=== PATIENT | female | born 1935 | race Caucasian/White ===

== ENCOUNTER → 2017-10-28 | Outpatient (CLI) | payer OTHER, SELFPAY ==
[~2017-10-28] MED LIST: ACET325 PO; ALBU90OI INH; ALEN70 PO; AMOCLA875 PO; ASPI325 PO; ASPI81CH PO; ASPI81EC PO; BENZ100A PO; BUME2 PO; CALCA400CH PO; CALCAVITD PO; CALCIUM + VITA1 EACH PO; CALCIUM PO; CARV6.25 PO; CHOL10002 PO; Cleocin HCl300 MG PO; Cozaar PO; FLUT110OIA IH; FLUT44OIA IH; GLUC500 PO; HYDACE5 PO; K-TAB ER20 MEQ PO; LISI20 PO; LORA.5 PO; LORA1 PO; LORA10 PO; LOSA50 PO; LOSARTAN POTAS100 MG PO; LOSHYD100 PO; Lotrisone Cream45 GM EXT; MULVITMIND PO; Multiple Vitam1 EAC1 PO; POLY500 PO; Prednisone20 MG PO; SPACE CHAMBER1 EACH MC; Vitamin D2000 UNIT PO; XARELTO15 MG PO; Zithromax250 MG PO; [UNRECOGNIZED DRUG - OTHER] PO
== END ==
LOC: LAB SHORT 10:25
DX: A04.72 Enterocolitis due to Clostridium difficile, not specified as recurrent (principal)
CPT/HCPCS: 87493

== ENCOUNTER → 2018-01-05 | Outpatient (CLI) | payer OTHER, SELFPAY | END | disposition home or self-care (01) | LOC: LAB SHORT 17:27 → LAB 17:27 | DX: B96.89 Other specified bacterial agents as the cause of diseases classified elsewhere (principal) | CPT/HCPCS: 87493 ==

== ENCOUNTER → 2018-02-21 | Outpatient (CLI) | payer OTHER, SELFPAY | END | disposition home or self-care (01) | LOC: LAB 11:29 → LAB FUT 02-20 15:05 → EDSTATUS 02-20 15:05 | DX: A04.71 Enterocolitis due to Clostridium difficile, recurrent (principal) | CPT/HCPCS: 87493 ==

== ENCOUNTER → 2018-03-20 | Outpatient (CLI) | payer OTHER, SELFPAY ==
[2018-03-21 12:10] LABS: Stool Occult Bld Immuno 1 Negative (NEGATIVE)
[2018-03-21 12:11] LABS: Stool Occult Bld Immuno 2 Negative (NEGATIVE); Stool Occult Bld Immuno 3 Negative (NEGATIVE)
== END | disposition home or self-care (01) ==
LOC: LAB 11:56
PROVIDERS: Nurse Practitioner
DX: R19.7 Diarrhea, unspecified (principal); R10.11 Right upper quadrant pain; R14.0 Abdominal distension (gaseous)
CPT/HCPCS: G0328

== ENCOUNTER → 2018-05-26 | Outpatient (CLI) | payer OTHER, SELFPAY | LOC: LAB 13:28 → LAB SHORT 13:28 | DX: R19.7 Diarrhea, unspecified (principal) | CPT/HCPCS: 87493 ==

== ENCOUNTER → 2018-09-29 | Outpatient (CLI) | payer OTHER | END | disposition home or self-care (01) | LOC: LAB UCHC 13:43 → LAB SHORT 13:43 → EDSTATUS 01-24 08:05 → LAB FUT 01-24 08:05 | DX: N93.9 Abnormal uterine and vaginal bleeding, unspecified (principal); R31.9 Hematuria, unspecified | CPT/HCPCS: 87086 ==

== ENCOUNTER → 2019-03-11 | Outpatient (CLI) | payer OTHER ==
[2019-03-13 17:59] LABS: Adenovirus F 40/41 Not Detected (NOT DETECT); Astrovirus Not Detected (NOT DETECT); Campylobacter Sp Not Detected (NOT DETECT); Cryptosporidium Not Detected (NOT DETECT); Cyclospora Cayetanensis Not Detected (NOT DETECT); E. Coli O157 Not Detected (NOT DETECT); Entamoeba Histolytica Not Detected (NOT DETECT); Enteroaggregative E. coli-EAEC Not Detected (NOT DETECT); Enteropathogenic E. coli-EPEC Not Detected (NOT DETECT); Enterotoxigenic E. coli-ETEC Not Detected (NOT DETECT); Giardia Lamblia Not Detected (NOT DETECT); Norovirus GI/GII Not Detected (NOT DETECT); Plesiomonas Shigelloides Not Detected (NOT DETECT); Rotavirus A Not Detected (NOT DETECT); Salmonella Sp Not Detected (NOT DETECT); Sapovirus Not Detected (NOT DETECT); Shiga Toxin-prod E. coli-STEC Not Detected (NOT DETECT); Shigella/Enteroin E. coli-EIEC Not Detected (NOT DETECT); Vibrio Cholerae Not Detected (NOT DETECT); Vibrio Sp Not Detected (NOT DETECT); Yersinia Enterocolitica Not Detected (NOT DETECT)
== END | disposition home or self-care (01) ==
LOC: LAB 15:10 → LAB SHORT 15:10
PROVIDERS: Internal Medicine Gastroenterology
DX: R10.84 Generalized abdominal pain (principal); R19.7 Diarrhea, unspecified
CPT/HCPCS: 87507

== ENCOUNTER 2019-04-27 08:30 | Day surgery (SDC) | payer OTHER, SELFPAY ==
[~2019-04-27] VITALS: Ht 165.1 cm; Wt 71.2 kg
[~2019-04-27 08:30] MED LIST changes: +VITAMIN D5000 UNIT PO; -XARELTO15 MG PO; +XARELTO20 MG PO
--- NOTE | 2019-04-27 09:31 | NUR ---
04/27/19 0931 DEBORAH TOBIAS ONE BAD IV, ONE GOOD IV BY ROSSANA
== END 2019-04-27 10:22 | disposition home or self-care (01) ==
LOC: ORSCSDS 08:30
PROVIDERS: Internal Medicine Gastroenterology
PROC: 0DBE8ZX Excision of Large Intestine, Via Natural or Artificial Opening Endoscopic, Diagnostic (ICD-10-PCS; principal; 2019-04-27 09:45)
PROC: 0DBM8ZX Excision of Descending Colon, Via Natural or Artificial Opening Endoscopic, Diagnostic (ICD-10-PCS; principal; 2019-04-27 09:45)
DX: K62.5 Hemorrhage of anus and rectum (principal); D12.4 Benign neoplasm of descending colon; K58.9 Irritable bowel syndrome, unspecified; Z86.010 Personal history of colon polyps; K57.30 Diverticulosis of large intestine without perforation or abscess without bleeding; K64.8 Other hemorrhoids; Z80.0 Family history of malignant neoplasm of digestive organs; I48.91 Unspecified atrial fibrillation; Z79.899 Other long term (current) drug therapy
CPT/HCPCS: 88305; J2704; J7120

== ENCOUNTER 2019-04-29 11:09 | Observation (INO) | payer OTHER ==
[~2019-04-29] VITALS: Ht 165.1 cm; Wt 69.1 kg
[2019-04-29 12:40] LABS: BASOPHILS ABSOLUTE AUTO 0.05 K/mm3 (0.00-0.23); BASOPHILS PERCENT AUTO 1 % (0-2); EOSINOPHILS ABSOLUTE AUTO 0.15 K/mm3 (0.00-0.68); EOSINOPHILS PERCENT AUTO 3 % (0-6); IMMATURE GRAN ABSOLUTE AUTO 0.03 K/mm3 (0.00-0.10); IMMATURE GRAN PERCENT AUTO 1 % (0-1); LYMPHOCYTES ABSOLUTE AUTO 1.73 K/mm3 (0.84-5.20); LYMPHOCYTES PERCENT AUTO 31 % (21-46); MONOCYTES ABSOLUTE AUTO 0.54 K/mm3 (0.16-1.47); MONOCYTES PERCENT AUTO 10 % (4-13); Mean Corpuscular HGB 30.8 pg (26.0-34.0); Mean Corpuscular HGB Conc 32.6 g/dL (31.5-36.5); Mean Corpuscular Volume 95 fL (80-100); Mean Platelet Volume 10.5 fL (9.1-12.4); NEUTROPHILS ABSOLUTE AUTO 3.18 K/mm3 (1.96-9.15); NEUTROPHILS PERCENT AUTO 56 % (41-73); Platelet Count 145 K/mm3 (150-400); RDW Coefficient Variation 13.2 % (11.7-14.2); RDW Standard Deviation 45.4 fL (35.1-46.3); Red Blood Cell Count 4.55 M/mm3 (3.80-5.20); White Blood Cell Count 5.68 K/mm3 (4.00-11.30)
[2019-04-29 12:59] LABS: Alanine Aminotransfer (ALT/SGP 19 U/L (12-78); Albumin, Blood 3.6 g/dL (3.4-5.0); Albumin/Globulin Ratio 1.3 (0.8-1.8); Alk Phos 93 U/L (50-136); Anion Gap 3 mmol/L (6-16); Aspartate Aminotrans (AST/SGOT 16 U/L (12-37); Bilirubin, Total 1.2 mg/dL (0.1-1.0); Blood Urea Nitrogen 20 mg/dL (8-24); Bun/Creatinine Ratio 22.9 (12.0-20.0); CO2, Blood 28 mmol/L (21-32); Chloride, Blood 110 mmol/L (98-108); Creatinine, Blood 0.87 mg/dL (0.40-1.00); Globulin, Blood 2.7 g/dL (2.2-4.0); Glomerular Filtration Rate >60 (60-); Glucose, Blood 92 mg/dL (70-99); Potassium, Blood 4.4 mmol/L (3.5-5.5); Sodium, Blood 141 mmol/L (136-145); Total Protein, Blood 6.3 g/dL (6.4-8.2)
[2019-04-29] MEDS ORDERED: LOSA25 PO (13:17)
[2019-04-29] MEDS ORDERED: ASCO500 PO (13:17)
[2019-04-29] MEDS ORDERED: FLUO10 PO (13:19)
[2019-04-29] MEDS ORDERED: METAMUCIL0.4 GM PO (13:19)
--- NOTE | 2019-04-29 18:23 | NUR ---
SHIFT SUMMARY ED ADMIT THIS AFTERNOON. PATIENT DENIES PAIN, NAUSEA, AND SHORTNESS OF BREATH. PATIENT CONTINUES TO PASS LARGE AMOUNTS OF CLAY RED BLOOD AND CLOTS FROM HER RECTUM. PATIENT UP TO BATHROOM SBA. DR. KRAUS CONSULTED ON PATIENT TODAY. CALL LIGHT IN REACH, WILL CONTINUE TO MONITOR.
[2019-04-29 19:59] LABS: Hematocrit 40.9 % (33.0-51.0); Hemoglobin 12.9 g/dL (11.5-16.0)
--- NOTE | 2019-04-30 04:39 | NUR ---
SUMMARY: A/OX3, CALLS APPROPRIATELY AND SPECIFIES NEEDS. SHE CONT'S TO HAVE BM'S W/CLAY RED VISCOUS BLOOD AND CLOTS OBSERVED. SHE REPORTS A SOFT, NONTENDER ABDO W/DISTENSION OBSERVED AND BT'S PRESENT X4 QUADS. CLEAR LIQUID DIET BEING TOLERATED AND CONSULTING. NS W/2OMEQ KCL INFUSES PER EMAR. BREAK GIVEN FROM KARLY HOSE AND PT REPOSITIONS SELF IN BED. NO ACUTE CHANGES, VSS AND AFEBRILE. WCTM AND REPORT TO DAY RN. AM LABS PENDING.
[2019-04-30 05:05] LABS: Hematocrit 38.8 % (33.0-51.0); Hemoglobin 12.4 g/dL (11.5-16.0); Mean Corpuscular HGB 30.8 pg (26.0-34.0); Mean Corpuscular Volume 97 fL (80-100); Mean Platelet Volume 10.3 fL (9.1-12.4); Platelet Count 129 K/mm3 (150-400); RDW Standard Deviation 46.2 fL (35.1-46.3); Red Blood Cell Count 4.02 M/mm3 (3.80-5.20); White Blood Cell Count 5.21 K/mm3 (4.00-11.30)
[2019-04-30 05:40] LABS: Anion Gap 5 mmol/L (6-16); Blood Urea Nitrogen 15 mg/dL (8-24); Bun/Creatinine Ratio 17.5 (12.0-20.0); CO2, Blood 26 mmol/L (21-32); Calcium, Blood 8.2 mg/dL (8.5-10.1); Chloride, Blood 110 mmol/L (98-108); Creatinine, Blood 0.86 mg/dL (0.40-1.00); Glomerular Filtration Rate >60 (60-); Glucose, Blood 82 mg/dL (70-99); Potassium, Blood 4.5 mmol/L (3.5-5.5); Sodium, Blood 141 mmol/L (136-145)
[2019-04-30 15:55] LABS: Hematocrit 38.2 % (33.0-51.0); Hemoglobin 12.3 g/dL (11.5-16.0)
--- NOTE | 2019-04-30 18:31 | NUR ---
SHIFT SUMMARY PT CONTINUES TO HAVE BLOODY STOOLS WITH BLOOD CLOTS. PT TOLERATING CLEAR LIQ DIET. PT STATES SHE THINKS THE AMOUNT OF BLOOD IS DECREASING IN EACH STOOL. NO OTHER CHANGES IN ASSESSMENT AT THIS TIME. VSS. WILL CONTINUE TO MONITOR UNTIL TURNOVER IS COMPLETE.
[2019-05-01 05:24] LABS: BASOPHILS ABSOLUTE AUTO 0.05 K/mm3 (0.00-0.23); BASOPHILS PERCENT AUTO 1 % (0-2); EOSINOPHILS ABSOLUTE AUTO 0.17 K/mm3 (0.00-0.68); EOSINOPHILS PERCENT AUTO 3 % (0-6); Hematocrit 39.2 % (33.0-51.0); Hemoglobin 12.6 g/dL (11.5-16.0); IMMATURE GRAN ABSOLUTE AUTO 0.02 K/mm3 (0.00-0.10); IMMATURE GRAN PERCENT AUTO 0 % (0-1); LYMPHOCYTES ABSOLUTE AUTO 1.61 K/mm3 (0.84-5.20); LYMPHOCYTES PERCENT AUTO 29 % (21-46); MONOCYTES ABSOLUTE AUTO 0.57 K/mm3 (0.16-1.47); MONOCYTES PERCENT AUTO 10 % (4-13); Mean Corpuscular HGB 30.8 pg (26.0-34.0); Mean Corpuscular HGB Conc 32.1 g/dL (31.5-36.5); Mean Corpuscular Volume 96 fL (80-100); Mean Platelet Volume 10.5 fL (9.1-12.4); NEUTROPHILS ABSOLUTE AUTO 3.06 K/mm3 (1.96-9.15); NEUTROPHILS PERCENT AUTO 56 % (41-73); Platelet Count 131 K/mm3 (150-400); RDW Standard Deviation 45.4 fL (35.1-46.3); Red Blood Cell Count 4.09 M/mm3 (3.80-5.20); White Blood Cell Count 5.48 K/mm3 (4.00-11.30)
--- NOTE | 2019-05-01 05:33 | NUR ---
SUMMARY: A/O, INDEPENDENT AND KNOWS TO CALL FOR ASSIST PRN. SHE HAS DENIED NEEDING PAIN OR NAUSEA MEDS AND HASN'T REPORTED AND DIZZYNESS DESPITE CONT'D RECTAL BLEEDING. BLOOD LOSS HAS VARIED FROM LARGE DARK RED/PURPLE CLOTS TO LIQUID CLAY BLOOD IN VARYING AMTS. SHE HAD X1 EPISODE OF BROWN SMEAR MIXED IN W/RECTAL BLEEDING AND PT REPORTED THIS WAS 1ST OBSERVED STOOL IN DAYS. SHE IS OFTEN INCONTINENT D/T URGENCY. HER ABDO CONT'S VERY DISTENDED AND FIRM. BT'S (+) X4 QUADS. SHE REFUSED METAMUCIL THIS SHIFT BUT AGREED TO COMMENCE AGAIN TODAY. CL DIET IS TOLERATED AND PT IS SL. VSS/AFEBRILE BUT HR WAS PRIYANKA THIS AM AT 50'S WHILE SLEEPING VERY SOUNDLY. HGB/HCT ARE STABLE DESPITE BLEEDING. GI CONSULTING. ROCHELLE AND REPORT TO DAY RN.
--- NOTE | 2019-05-01 15:27 | NUR ---
PT DISCHARGED PT DISCHARGED AT 1459. PT IN STABLE CONDITION WITH VSS. NO CHANGES IN ASSESSMENT PRIOR TO DC. PT HAVING MORE STOOL THAT BLOOD IN BM. PT & EDUCATED ON DC INSTRUCTIONS. DENIED NEED FOR FURTHER INSTRUCTION. PT WHEELED OUT BY AIDE & DRIVEN HOME BY .
== END 2019-05-01 14:59 | disposition home or self-care (01) ==
LOC: ER 11:09 → MEDS 11:10
PROVIDERS: Internal Medicine; ADMIT Hospitalist
DX: K62.5 Hemorrhage of anus and rectum (principal); I48.91 Unspecified atrial fibrillation; F41.9 Anxiety disorder, unspecified; F32.9 Major depressive disorder, single episode, unspecified; K91.5 Postcholecystectomy syndrome
CPT/HCPCS: 36415; 80048; 80053; 85014; 85018; 85025; 85027; 86850; 86900; 86901; 99285; G0378; J3480

== ENCOUNTER 2019-10-08 15:37 | Emergency (ER) | payer OTHER, SELFPAY ==
[~2019-10-08] VITALS: Ht 165.1 cm; Wt 68.0 kg
[~2019-10-08 15:37] MED LIST changes: +ASCO500 PO; +FLUO10 PO; +LOSA25 PO; +METAMUCIL0.4 GM PO
[2019-10-08 16:29] LABS: BASOPHILS ABSOLUTE AUTO 0.03 K/mm3 (0.00-0.23); BASOPHILS PERCENT AUTO 1 % (0-2); EOSINOPHILS ABSOLUTE AUTO 0.02 K/mm3 (0.00-0.68); EOSINOPHILS PERCENT AUTO 0 % (0-6); Hematocrit 46.1 % (33.0-51.0); Hemoglobin 14.8 g/dL (11.5-16.0); IMMATURE GRAN ABSOLUTE AUTO 0.04 K/mm3 (0.00-0.10); IMMATURE GRAN PERCENT AUTO 1 % (0-1); LYMPHOCYTES ABSOLUTE AUTO 0.89 K/mm3 (0.84-5.20); LYMPHOCYTES PERCENT AUTO 14 % (21-46); MONOCYTES ABSOLUTE AUTO 0.66 K/mm3 (0.16-1.47); MONOCYTES PERCENT AUTO 10 % (4-13); Mean Corpuscular HGB Conc 32.1 g/dL (31.5-36.5); Mean Corpuscular Volume 94 fL (80-100); Mean Platelet Volume 10.5 fL (9.1-12.4); NEUTROPHILS ABSOLUTE AUTO 4.92 K/mm3 (1.96-9.15); NEUTROPHILS PERCENT AUTO 75 % (41-73); Platelet Count 173 K/mm3 (150-400); RDW Coefficient Variation 13.8 % (11.7-14.2); RDW Standard Deviation 47.3 fL (35.1-46.3); Red Blood Cell Count 4.93 M/mm3 (3.80-5.20); White Blood Cell Count 6.56 K/mm3 (4.00-11.30)
[2019-10-08 16:51] LABS: Alanine Aminotransfer (ALT/SGP 26 U/L (12-78); Albumin, Blood 3.8 g/dL (3.4-5.0); Alk Phos 124 U/L (50-136); Anion Gap 7 mmol/L (6-16); Aspartate Aminotrans (AST/SGOT 34 U/L (12-37); Bilirubin, Total 1.1 mg/dL (0.1-1.0); Blood Urea Nitrogen 20 mg/dL (8-24); Bun/Creatinine Ratio 15.6 (12.0-20.0); CO2, Blood 27 mmol/L (21-32); Chloride, Blood 101 mmol/L (98-108); Creatinine, Blood 1.28 mg/dL (0.40-1.00); Globulin, Blood 3.7 g/dL (2.2-4.0); Glomerular Filtration Rate 42 (60-); Glucose, Blood 133 mg/dL (70-99); Sodium, Blood 135 mmol/L (136-145); Total Protein, Blood 7.5 g/dL (6.4-8.2); Troponin I <0.015 ng/mL (0.000-0.040)
[2019-10-08 20:55] LABS: Source, Urine Clean Catch
[2019-10-08 21:10] LABS: Blood, Urine 4+ (Neg); Glucose Qualitative, Urine Neg (Neg); Ketones, Urine 3+ (Neg); Leukocyte Esterase, Urine 2+ (Neg); Nitrite, Urine Neg (Neg); Protein, Urine 3+ (Neg); Specific Gravity, Urine 1.025 (1.003-1.022); Urobilinogen, Urine 3+ (Normal)
[2019-10-08 21:11] LABS: Appearance, Urine Hazy (Clear); Bilirubin, Urine 1+ (Neg); Color, Urine Amber (P-Yellow)
[2019-10-08 21:19] LABS: Amorphous Mod (0-Heavy); Bacteria Many /hpf; Mucus Light (0-Heavy); Squamous Epithelial Cells Rare /hpf (Few); White Blood Cells, Urine 25-50 /hpf (0-5)
[2019-10-08 21:20] LABS: Hyaline Casts 50-100 /lpf (0-2)
[2019-10-08] MEDS ORDERED: CEPH500 PO (21:38)
[2019-10-08] MEDS ORDERED: HYDR1TAB94 PO (21:38)
== END 2019-10-08 22:00 | disposition home or self-care (01) ==
LOC: ER 15:37
PROVIDERS: Physician Assistant
DX: S22.31XA Fracture of one rib, right side, initial encounter for closed fracture (principal); N39.0 Urinary tract infection, site not specified; E86.0 Dehydration; K52.9 Noninfective gastroenteritis and colitis, unspecified; W18.2XXA Fall in (into) shower or empty bathtub, initial encounter; Z88.0 Allergy status to penicillin; Z79.899 Other long term (current) drug therapy; Z86.73 Personal history of transient ischemic attack (TIA), and cerebral infarction without residual deficits
CPT/HCPCS: 36415; 71101; 80053; 81001; 84484; 85025; 87077; 87086; 87186; 93005; 93010; 96360; 99284-25; A9270; A9270-GY; J7030

== ENCOUNTER → 2019-10-12 | Outpatient (CLI) | payer OTHER, SELFPAY ==
[~2019-10-12] MED LIST changes: +CEPH500 PO; +HYDR1TAB94 PO
== END | disposition home or self-care (01) ==
LOC: LAB SHORT 16:14 → OLS 16:14
DX: R19.7 Diarrhea, unspecified (principal)
CPT/HCPCS: 87493

== ENCOUNTER → 2019-12-21 | Outpatient (CLI) | payer OTHER | END | disposition home or self-care (01) | LOC: LAB SHORT 11:51 → LAB 11:51 | DX: R31.9 Hematuria, unspecified (principal) | CPT/HCPCS: 87086 ==

== ENCOUNTER → 2020-07-07 | Outpatient (CLI) | payer OTHER | END | disposition home or self-care (01) | LOC: LAB SHORT 08:13 → PLD 08:13 | DX: D04.5 Carcinoma in situ of skin of trunk (principal); L57.0 Actinic keratosis | CPT/HCPCS: 88305 ==

== ENCOUNTER 2021-01-19 01:35 | Emergency (ER) | payer OTHER ==
[~2021-01-19] VITALS: Ht 165.1 cm; Wt 68.0 kg
[2021-01-19 02:40] LABS: BASOPHILS ABSOLUTE AUTO 0.05 K/mm3 (0.00-0.23); BASOPHILS PERCENT AUTO 1 % (0-2); EOSINOPHILS ABSOLUTE AUTO 0.19 K/mm3 (0.00-0.68); EOSINOPHILS PERCENT AUTO 3 % (0-6); Hematocrit 44.1 % (33.0-51.0); Hemoglobin 14.5 g/dL (11.5-16.0); IMMATURE GRAN ABSOLUTE AUTO 0.02 K/mm3 (0.00-0.10); IMMATURE GRAN PERCENT AUTO 0 % (0-1); LYMPHOCYTES ABSOLUTE AUTO 1.48 K/mm3 (0.84-5.20); LYMPHOCYTES PERCENT AUTO 23 % (21-46); MONOCYTES ABSOLUTE AUTO 0.59 K/mm3 (0.16-1.47); MONOCYTES PERCENT AUTO 9 % (4-13); Mean Corpuscular HGB 31.3 pg (26.0-34.0); Mean Corpuscular HGB Conc 32.9 g/dL (31.5-36.5); Mean Corpuscular Volume 95 fL (80-100); Mean Platelet Volume 11.2 fL (9.1-12.4); NEUTROPHILS ABSOLUTE AUTO 4.18 K/mm3 (1.96-9.15); NEUTROPHILS PERCENT AUTO 64 % (41-73); Platelet Count 156 K/mm3 (150-400); RDW Coefficient Variation 14.1 % (11.7-14.2); RDW Standard Deviation 49.1 fL (35.1-46.3); Red Blood Cell Count 4.64 M/mm3 (3.80-5.20); White Blood Cell Count 6.51 K/mm3 (4.00-11.30)
[2021-01-19 02:53] LABS: Troponin I <0.015 ng/mL (0.000-0.040)
[2021-01-19 02:54] LABS: Alanine Aminotransfer (ALT/SGP 29 U/L (12-78); Albumin, Blood 3.8 g/dL (3.4-5.0); Albumin/Globulin Ratio 1.2 (0.8-1.8); Alk Phos 105 U/L (50-136); Anion Gap 6 mmol/L (6-16); Aspartate Aminotrans (AST/SGOT 28 U/L (12-37); Bilirubin, Total 1.5 mg/dL (0.1-1.0); Blood Urea Nitrogen 16 mg/dL (8-24); Bun/Creatinine Ratio 20.2 (12.0-20.0); CO2, Blood 26 mmol/L (21-32); Chloride, Blood 107 mmol/L (98-108); Creatinine, Blood 0.79 mg/dL (0.40-1.00); Globulin, Blood 3.1 g/dL (2.2-4.0); Glomerular Filtration Rate >60 (60-); Glucose, Blood 103 mg/dL (70-99); Potassium, Blood 4.4 mmol/L (3.5-5.5); Sodium, Blood 139 mmol/L (136-145); Total Protein, Blood 6.9 g/dL (6.4-8.2)
[2021-01-19 03:27] LABS: Bilirubin, Urine Neg (Neg); Blood, Urine 1+ (Neg); Glucose Qualitative, Urine Neg (Neg); Ketones, Urine Neg (Neg); Leukocyte Esterase, Urine 1+ (Neg); Nitrite, Urine Neg (Neg); Protein, Urine Neg (Neg); Source, Urine Clean Catch; Specific Gravity, Urine 1.015 (1.003-1.022); Urobilinogen, Urine 3+ (Normal); pH, Urine 6.5 (5.0-8.0)
[2021-01-19 03:42] LABS: Appearance, Urine Clear (Clear); Color, Urine Yellow (P-Yellow)
[2021-01-19 03:43] LABS: Bacteria Rare /hpf; Red Blood Cells, Urine 0-2 /hpf (0-2); Squamous Epithelial Cells Rare /hpf (Few); White Blood Cells, Urine 0-2 /hpf (0-5)
[2021-01-19] MEDS ORDERED: XARELTO20 MG PO (08:17)
== END 2021-01-19 10:58 | disposition home or self-care (01) ==
LOC: ER 01:35
PROVIDERS: Emergency Medicine
DX: I48.91 Unspecified atrial fibrillation (principal); F41.9 Anxiety disorder, unspecified; Z88.0 Allergy status to penicillin; Z88.2 Allergy status to sulfonamides; Z79.899 Other long term (current) drug therapy
CPT/HCPCS: 71046; 80053; 81001; 83690; 84484; 85025; 93005; 93010; 96374; 96375; 99285-25; A9270; J7030

== ENCOUNTER → 2021-01-23 | Outpatient (CLI) | payer OTHER ==
[2021-01-23 19:30] LABS: Adenovirus F 40/41 Not Detected (NOT DETECT); Astrovirus Not Detected (NOT DETECT); Campylobacter Sp Not Detected (NOT DETECT); Cryptosporidium Not Detected (NOT DETECT); Cyclospora Cayetanensis Not Detected (NOT DETECT); E. Coli O157 Not Detected (NOT DETECT); Entamoeba Histolytica Not Detected (NOT DETECT); Enteroaggregative E. coli-EAEC Not Detected (NOT DETECT); Enteropathogenic E. coli-EPEC Not Detected (NOT DETECT); Enterotoxigenic E. coli-ETEC Not Detected (NOT DETECT); Giardia Lamblia Not Detected (NOT DETECT); Norovirus GI/GII Not Detected (NOT DETECT); Plesiomonas Shigelloides Not Detected (NOT DETECT); Rotavirus A Not Detected (NOT DETECT); Salmonella Sp Not Detected (NOT DETECT); Sapovirus Not Detected (NOT DETECT); Shiga Toxin-prod E. coli-STEC Not Detected (NOT DETECT); Shigella/Enteroin E. coli-EIEC Not Detected (NOT DETECT); Vibrio Cholerae Not Detected (NOT DETECT); Vibrio Sp Not Detected (NOT DETECT); Yersinia Enterocolitica Not Detected (NOT DETECT)
== END | disposition home or self-care (01) ==
LOC: LAB SHORT 14:35
PROVIDERS: Physician Assistant
DX: K52.9 Noninfective gastroenteritis and colitis, unspecified (principal)
CPT/HCPCS: 0097U

== ENCOUNTER 2021-02-23 09:39 | Day surgery (SDC) | payer OTHER ==
[~2021-02-23] VITALS: Ht 165.1 cm; Wt 70.0 kg
[2021-02-23] MEDS ORDERED: METO25ER PO (10:31)
[2021-02-23] MEDS ORDERED: DIAZ5 PO (10:31)
[2021-02-23] MEDS ORDERED: TORSE20 PO (10:32)
--- NOTE | 2021-02-23 11:22 | NUR ---
PROCEDURE DELAYED, PATIENT UPDATED.
--- NOTE | 2021-02-23 13:44 | NUR ---
ELISA UP TO THE RESTROOM, GAIT STEADY. DR. DESIR HERE AND SPOKE WITH THE PATIENT BRIEFLY REGARDING THE DELAY AND PRODECURE ACTIVITIES. PATIENT VERBALIZED UNDERSTANDING AND HAD NO FURTHER QUESTIONS.
--- NOTE | 2021-02-23 16:29 | NUR ---
1600 PATIENT RETURNED FROM THE [facility] WITH TR BAND X 2 TO THE RIGHT RADIAL AND BRUISING NOTED. PROXIMAL TO THE SECOND TR BAND WAS A HEMATOMA DEVELOPING. MANUAL PRESSURE HELD TO THIS SITE. HEMATOMA MASHED OUT. BRUISING WORSENING. RIGHT BRACHIAL SITE WITH TEETEE/TEGADERM AND PRESSURE DRESSING. TO THE BEDSIDE AND UPDATE ON PATIENT STATUS.
--- NOTE | 2021-02-23 16:51 | NUR ---
MANUAL PRESSURE HELD PROXIMAL TO THE SMALL HEMAOTOMA REMAINING. MASHING FLAT, BRUISING WORSENING. MD AWARE.
--- NOTE | 2021-02-23 16:53 | NUR ---
LUNCH TRAY SERVED ADN PATIENT REMAINS IN THE RECLINER AND EATING LUNCH. AT THE BEDSIDE. VVS.
--- NOTE | 2021-02-23 17:11 | NUR ---
PATIENT UP TO BEDSIDE COMMODE, DIARRHEA NOTED.
--- NOTE | 2021-02-23 17:26 | NUR ---
1725 BEGAN REMOVING AIR FROM TR BAND #1. NO BLEEDING NOTED.
--- NOTE | 2021-02-23 17:31 | NUR ---
BEGAN TAKING AIR OUT OF TR BAND #2
--- NOTE | 2021-02-23 18:32 | NUR ---
1814 REVIEWED ALL DISCAHRGE INSTRUCTIONS AND PIV REMOVED. PRESSURE DRESSING APPLIED TO THE LEFT AC IV SITE. COPIES GIVEN OF ALL DISCAHRGE INSTRUCTIONS. PATIENT VERBALIZED UNDERSTANDING AND HAD NO FURTHER QUESTIONS. VVS. BOTH TR BANDS REMOVED. RIGHT RADIAL SITE CLEANED AND BRUISING MARKED. CLOTH DOT X 2 APPLIED TO THE RIGHT RADIAL SITE. WHITE REPLACED. SLING APPLIED. PATIENT INSTRUCTED NOT TO USE THE RIGHT ARM. CHECK FOR SWELLING AT THE RIGHT WRIST AND REPORT ANY CHANGES OR BLEEDING TO DR. SMITH OFFICE. FOLLOW UP IN 10 DAYS. PATIENT DRESSED AND BELONGINGS GATHERED. PATIENT TO A WHEELCHAIR. PATIENT TO THE EXIT AND DRIVING THEM HOME.
== END 2021-02-23 18:35 | disposition home or self-care (01) ==
LOC: MHTC 09:39
DX: I08.0 Rheumatic disorders of both mitral and aortic valves (principal); I25.10 Atherosclerotic heart disease of native coronary artery without angina pectoris; I27.20 Pulmonary hypertension, unspecified; I11.0 Hypertensive heart disease with heart failure; I50.20 Unspecified systolic (congestive) heart failure; Z88.1 Allergy status to other antibiotic agents; Z88.0 Allergy status to penicillin; Z88.2 Allergy status to sulfonamides
CPT/HCPCS: 76937; 85347; 93456; 93571; 99152; 99153; C1769; C1894; J1644; J2250; J3010; J7030; J7040; Q9967

== ENCOUNTER 2021-12-28 08:38 | Emergency (ER) | payer OTHER ==
[~2021-12-28] VITALS: Ht 165.1 cm; Wt 65.8 kg
[~2021-12-28 08:38] MED LIST changes: +DIAZ5 PO; +METO25ER PO; +TORSE20 PO
[2021-12-28 09:36] LABS: BASOPHILS ABSOLUTE AUTO 0.06 K/mm3 (0.00-0.23); BASOPHILS PERCENT AUTO 1 % (0-2); EOSINOPHILS ABSOLUTE AUTO 0.07 K/mm3 (0.00-0.68); EOSINOPHILS PERCENT AUTO 1 % (0-6); Hemoglobin 15.1 g/dL (11.5-16.0); IMMATURE GRAN ABSOLUTE AUTO 0.02 K/mm3 (0.00-0.10); IMMATURE GRAN PERCENT AUTO 0 % (0-1); LYMPHOCYTES ABSOLUTE AUTO 0.93 K/mm3 (0.84-5.20); LYMPHOCYTES PERCENT AUTO 13 % (21-46); MONOCYTES ABSOLUTE AUTO 0.58 K/mm3 (0.16-1.47); MONOCYTES PERCENT AUTO 8 % (4-13); Mean Corpuscular HGB 30.8 pg (26.0-34.0); Mean Corpuscular HGB Conc 32.1 g/dL (31.5-36.5); Mean Corpuscular Volume 96 fL (80-100); Mean Platelet Volume 10.9 fL (9.1-12.4); NEUTROPHILS ABSOLUTE AUTO 5.76 K/mm3 (1.96-9.15); NEUTROPHILS PERCENT AUTO 78 % (41-73); Platelet Count 150 K/mm3 (150-400); RDW Coefficient Variation 13.8 % (11.7-14.2); RDW Standard Deviation 48.7 fL (35.1-46.3); White Blood Cell Count 7.42 K/mm3 (4.00-11.30)
[2021-12-28 09:54] LABS: Alanine Aminotransfer (ALT/SGP 36 U/L (12-78); Albumin, Blood 3.8 g/dL (3.4-5.0); Albumin/Globulin Ratio 1.3 (0.8-1.8); Alk Phos 123 U/L (50-136); Anion Gap 8 mmol/L (6-16); Aspartate Aminotrans (AST/SGOT 42 U/L (12-37); Bilirubin, Total 1.6 mg/dL (0.1-1.0); Blood Urea Nitrogen 16 mg/dL (8-24); Bun/Creatinine Ratio 19.6 (12.0-20.0); CO2, Blood 28 mmol/L (21-32); Calcium, Blood 9.1 mg/dL (8.5-10.1); Chloride, Blood 104 mmol/L (98-108); Creatinine, Blood 0.82 mg/dL (0.40-1.00); Globulin, Blood 2.9 g/dL (2.2-4.0); Glomerular Filtration Rate >60 (60-); Glucose, Blood 114 mg/dL (70-99); Potassium, Blood 4.4 mmol/L (3.5-5.5); Sodium, Blood 140 mmol/L (136-145); Total Protein, Blood 6.7 g/dL (6.4-8.2)
== END 2021-12-28 12:05 | disposition home or self-care (01) ==
LOC: ER 08:38
PROVIDERS: Emergency Medicine
DX: R06.00 Dyspnea, unspecified (principal); R53.83 Other fatigue; I48.91 Unspecified atrial fibrillation; Z86.73 Personal history of transient ischemic attack (TIA), and cerebral infarction without residual deficits; Z88.2 Allergy status to sulfonamides; Z88.0 Allergy status to penicillin; Z88.8 Allergy status to other drugs, medicaments and biological substances; Z79.899 Other long term (current) drug therapy
CPT/HCPCS: 36415; 71046; 80053; 83880; 84484; 85025; 93005; 93010; 93242

== ENCOUNTER → 2022-01-06 | Outpatient (CLI) | payer OTHER ==
[2022-01-08 11:47] LABS: Adenovirus F 40/41 Not Detected (NOT DETECT); Astrovirus Not Detected (NOT DETECT); Campylobacter Sp Not Detected (NOT DETECT); Cryptosporidium Not Detected (NOT DETECT); Cyclospora Cayetanensis Not Detected (NOT DETECT); E. Coli O157 Not Detected (NOT DETECT); Entamoeba Histolytica Not Detected (NOT DETECT); Enteroaggregative E. coli-EAEC Not Detected (NOT DETECT); Enteropathogenic E. coli-EPEC Not Detected (NOT DETECT); Enterotoxigenic E. coli-ETEC Not Detected (NOT DETECT); Giardia Lamblia Not Detected (NOT DETECT); Norovirus GI/GII Not Detected (NOT DETECT); Plesiomonas Shigelloides Not Detected (NOT DETECT); Rotavirus A Not Detected (NOT DETECT); Salmonella Sp Not Detected (NOT DETECT); Sapovirus Not Detected (NOT DETECT); Shiga Toxin-prod E. coli-STEC Not Detected (NOT DETECT); Shigella/Enteroin E. coli-EIEC Not Detected (NOT DETECT); Vibrio Cholerae Not Detected (NOT DETECT); Vibrio Sp Not Detected (NOT DETECT); Yersinia Enterocolitica Not Detected (NOT DETECT)
== END | disposition home or self-care (01) ==
LOC: LAB SHORT 17:35
PROVIDERS: Family Medicine
DX: K52.9 Noninfective gastroenteritis and colitis, unspecified (principal)
CPT/HCPCS: 87507; 89055

== ENCOUNTER 2022-06-08 13:57 | Emergency (ER) | payer OTHER ==
[~2022-06-08] VITALS: Ht 165.1 cm; Wt 59.0 kg
== END 2022-06-08 17:01 | disposition home or self-care (01) ==
LOC: ER 13:57
DX: S52.502A Unspecified fracture of the lower end of left radius, initial encounter for closed fracture (principal); I48.91 Unspecified atrial fibrillation; W19.XXXA Unspecified fall, initial encounter; Z86.73 Personal history of transient ischemic attack (TIA), and cerebral infarction without residual deficits; Z88.1 Allergy status to other antibiotic agents; Z88.0 Allergy status to penicillin; Z88.2 Allergy status to sulfonamides; Z79.899 Other long term (current) drug therapy; Z79.01 Long term (current) use of anticoagulants
CPT/HCPCS: 73100; 73110

== ENCOUNTER 2022-07-14 07:11 | Inpatient (IN) | payer OTHER ==
[~2022-07-14] VITALS: Ht 170.2 cm; Wt 57.1 kg
[2022-07-14 09:59] LABS: BASOPHILS ABSOLUTE AUTO 0.03 K/mm3 (0.00-0.23); BASOPHILS PERCENT AUTO 0 % (0-2); EOSINOPHILS PERCENT AUTO 0 % (0-6); Hematocrit 42.3 % (33.0-51.0); Hemoglobin 13.6 g/dL (11.5-16.0); IMMATURE GRAN ABSOLUTE AUTO 0.05 K/mm3 (0.00-0.10); IMMATURE GRAN PERCENT AUTO 1 % (0-1); LYMPHOCYTES PERCENT AUTO 6 % (21-46); MONOCYTES PERCENT AUTO 5 % (4-13); Mean Corpuscular HGB 31.6 pg (26.0-34.0); Mean Corpuscular HGB Conc 32.2 g/dL (31.5-36.5); Mean Corpuscular Volume 98 fL (80-100); Mean Platelet Volume 10.4 fL (9.1-12.4); NEUTROPHILS ABSOLUTE AUTO 9.65 K/mm3 (1.96-9.15); NEUTROPHILS PERCENT AUTO 88 % (41-73); Platelet Count 103 K/mm3 (150-400); RDW Coefficient Variation 14.3 % (11.7-14.2); RDW Standard Deviation 51.7 fL (35.1-46.3); White Blood Cell Count 11.03 K/mm3 (4.00-11.30)
[2022-07-14 10:20] LABS: Albumin, Blood 3.2 g/dL (3.4-5.0); Albumin/Globulin Ratio 1.3 (0.8-1.8); Bilirubin, Total 1.1 mg/dL (0.1-1.0); Bun/Creatinine Ratio 21.5 (12.0-20.0); Creatinine, Blood 0.65 mg/dL (0.40-1.00); Globulin, Blood 2.5 g/dL (2.2-4.0); Potassium, Blood 4.8 mmol/L (3.5-5.5); Total Protein, Blood 5.7 g/dL (6.4-8.2)
[2022-07-14 16:28] LABS: Influenza A, PCR NEGATIVE (NEGATIVE); Influenza B, PCR NEGATIVE (NEGATIVE); Resp Syncytial Virus, PCR NEGATIVE (NEGATIVE); SARS-Cov-2 (COVID-19) PCR, MMC NEGATIVE (NEGATIVE)
--- NOTE | 2022-07-14 16:41 | NUR ---
SHIFT SUMMARY PT A&OX4, VSS/2LNC/BIOX ON, GURU PO, HOWELL PATENT & DRAINING YELLOW URINE, PAIN MANAGED WITH ULTRAM 50 MG X1, BEDREST. PLAN FOR NPO MIDNIGHT AND O.R. TOMORROW. AT BEDSIDE. WILL REPORT TO ONCOMING NOC RN.
--- NOTE | 2022-07-15 04:59 | NUR ---
SHIFT SUMMARY PT ALERT AND ORIENTED, BUT CAN BE FORGETFUL, BED ALARM ON. VSS. 2L PER NC WITH CONTINUOS PULSE OX. MEDICATED FOR PAIN ONCE WITH ULTRAM. NPO SINCE 0000. HOWELL DRAINING TO GRAVITY, YELLOW URINE. CALL LIGHT WITHIN REACH. PLAN IS FOR OR TODAY.
--- NOTE | 2022-07-15 12:06 | NUR ---
DR DAVIS, ANESTHESIOLOGIST SPOKE WITH DR REYES. PT SURGERY CANCELLED FOR NOW, ANESTHESIOLOGIST REQUESTING HEART RATE TO BE CONTROLLED. SPOKE WITH VICKY Javed RN TO NOTIFY OF PLAN AND PT RETURNED TO HER ROOM AND NOTIFIED.
--- NOTE | 2022-07-15 12:30 | NUR ---
TELEPHONE CALL TO HOSPITALIST TO INFORM THAT PT WAS BROUGHT BACK FROM [facility] FOR HEART RATE MAINTAINING 120s SO NO SURGERY TODAY. DR REYES SAID IF PT CAN MAINTAIN UNDER 100bpm UNTIL TOMORROW SURGERY WOULD BE TUESDAY. HOSP WILL PUT IN ORDERS (TELE, TOPROL 1X 12.5 MG DOSE NOW, GIVE TORADOL & ULTRAM AND LR @ 125 MLS/HR).
--- NOTE | 2022-07-15 14:49 | NUR ---
TELE MONITOR REPORTS SINUS TACH W/PACs @ 117, RUNNING BETWEEN 110-120
--- NOTE | 2022-07-15 14:56 | NUR ---
TELE MONITOR NEELIMA @ 89 AFTER LOPRESSOR
--- NOTE | 2022-07-15 16:45 | NUR ---
TELEPHONE CALL TO HOSPITALIST RE PT SPOUSE BRINGING IN PT BOTTLE OF TOPROL XL AND PT ACTUALLY TAKES 50 MG DAILY, RECEIVED ORDER TO CHANGE DOSE STARTING TOMORROW TUESDAY 0900. ALSO RECEIVED ORDER TO GIVE OT DOSE OF METOPROLOL TARTRATE 12.5 MG AT 2100 TONIGHT.
--- NOTE | 2022-07-15 17:11 | NUR ---
SHIFT SUMMARY PT A&OX3, 2LNC, GURU PO, HOWELL PATENT & DRAINING YELLOW URINE, IVF @ 100 MLS/HR, BEDREST. PLAN FOR NPO MIDNIGHT FOR POSSIBLE SURGERY TOMORROW. HEART RATE MAINTAINING UNDER 100 bpm SINCE LOPRESSOR 2.5 MG IV DOSE GIVEN AT 1448. WILL REPORT TO ONCOMING NOC RN.
[2022-07-16 04:28] LABS: BASOPHILS ABSOLUTE AUTO 0.06 K/mm3 (0.00-0.23); BASOPHILS PERCENT AUTO 1 % (0-2); EOSINOPHILS ABSOLUTE AUTO 0.27 K/mm3 (0.00-0.68); EOSINOPHILS PERCENT AUTO 3 % (0-6); Hematocrit 38.5 % (33.0-51.0); Hemoglobin 12.5 g/dL (11.5-16.0); IMMATURE GRAN ABSOLUTE AUTO 0.03 K/mm3 (0.00-0.10); IMMATURE GRAN PERCENT AUTO 0 % (0-1); LYMPHOCYTES ABSOLUTE AUTO 1.21 K/mm3 (0.84-5.20); LYMPHOCYTES PERCENT AUTO 13 % (21-46); MONOCYTES ABSOLUTE AUTO 0.83 K/mm3 (0.16-1.47); MONOCYTES PERCENT AUTO 9 % (4-13); Mean Corpuscular HGB 31.6 pg (26.0-34.0); Mean Corpuscular HGB Conc 32.5 g/dL (31.5-36.5); Mean Corpuscular Volume 97 fL (80-100); Mean Platelet Volume 11.1 fL (9.1-12.4); NEUTROPHILS ABSOLUTE AUTO 6.72 K/mm3 (1.96-9.15); NEUTROPHILS PERCENT AUTO 74 % (41-73); Platelet Count 113 K/mm3 (150-400); RDW Coefficient Variation 13.8 % (11.7-14.2); RDW Standard Deviation 49.7 fL (35.1-46.3); Red Blood Cell Count 3.96 M/mm3 (3.80-5.20); White Blood Cell Count 9.12 K/mm3 (4.00-11.30)
[2022-07-16 04:43] LABS: Bun/Creatinine Ratio 30.2 (12.0-20.0); Calcium, Blood 8.3 mg/dL (8.5-10.1); Creatinine, Blood 0.63 mg/dL (0.40-1.00); Potassium, Blood 4.8 mmol/L (3.5-5.5)
--- NOTE | 2022-07-16 07:32 | NUR ---
SUMMARY PT REQUIRED IV LOPRESSOR X1 FOR HEART RATE GREATER THAN 110 TONIGHT. THEN, RETURNED TO 90'S, BUT HAS COME BACK UP AT THIS TIME.PT IS SCHEDULED FOR ROUTINE XL THIS AM.I CALLED DR HOLLY LAST NIGHT AND ADVISED OF DECREASED URINE OUTPUT AND TEA COLORED IN HOWELL. DISCUSSED LABS INCLUDING CREATININE,BNP AND CXR RESULTS WITH CONCERN FOR EDEMA.IV FLUIDS STARTED AT 50 /HR,URINE IS UNDERWEAR WELTER APPEARING.CONTINUES WTIH SMALLER VOLUME OUTPUT, BUT IMPROVING.MAP WNL.
--- NOTE | 2022-07-16 10:30 | NUR ---
Pt. is awake in bed and welcomes my visit. Pt. is pleasant, and awaiting a procedure on her hip. Pt. displays evidence of occassional confustion, but is engaged in her care plan. Establish rapport with a calming presence. Prayed with Pt. Pt verbalized gratitude for the spiritual care visit.
--- NOTE | 2022-07-16 11:38 | NUR ---
PATIENT JUST LEFT FOR THE OR.
--- NOTE | 2022-07-16 13:02 | NUR ---
LATE ENTRY FOR 1140. PT ARRIVED TO UNIT VIA HOSPITAL BED. PT ON 2L'S OF OXYGEN VIA NC. PT REPORTS NO PAIN OR NAUSEA. REVIEWED ALLERGIES AND MEDICATIONS. Pre-Op teaching done. Pt verbalizes understanding.
--- NOTE | 2022-07-16 13:03 | NUR ---
07/16/22 Andreina Rod PATIENT ARRIVED TO OR WITH HOWELL CATHETER IN PLACE DRAINING DARK ORANGE URINE.
--- NOTE | 2022-07-16 15:13 | NUR ---
SHIFT SUMMARY: POD 0 LEFT HIP PINNING PATIENT CAME BACK FROM PACU TODAY AT 1500. SHE IS AWAKE AND ALERT. VS ARE WNL AND IS ON 2L NC. PATIENT DENIES PAIN AT THIS TIME. SHE IS FOLLOWING COMMANDS AND CAN MOVE HER FINGERS AND TOES. DENIES NUMBNESS OR TINGLING. LEFT HIP HAS 2 GAUZE WITH FOAM TAPE THAT ARE C/D/I. SCD'S ARE IN PLACE WELL KARLY HOSE. SHE IS WEIGHT BEARING TOLERATED ON THE LEFT LEG. HOWELL IS PATENT AND DRAINING PER GRAVITY WITH NO KINKS IN TUBING WITH DARK YELLOW URINE. PATIENT IS LAYING IN BED. CALL LIGHT WITHIN REACH.
--- NOTE | 2022-07-17 05:55 | NUR ---
SHIFT SUMMARY A/O X3- FORGETFUL THROUGHOUT THE NIGHT. POD1 L HIP PINNING, DRESSING C/D/I. HOWELL DRAINING DARK EAMON URINE TO GRAVITY. PAIN MEDS GIVEN PER EMAR. REMAINED BEDREST THROUGHOUT THE NIGHT. TOLERATED PO INTAKE W/O N/V REPORTED. VITAL SIGNS STABLE- TELE IN PLACE. WILL CONTINUE TO MONITOR AND REPORT TO ONCOMING RN.
[2022-07-17 07:44] LABS: Hematocrit 33.7 % (33.0-51.0)
[2022-07-17 08:10] LABS: Calcium, Blood 8.3 mg/dL (8.5-10.1); Creatinine, Blood 0.67 mg/dL (0.40-1.00); Potassium, Blood 4.7 mmol/L (3.5-5.5)
--- NOTE | 2022-07-17 17:30 | NUR ---
[employer] - ASO NOTIFIED THIS RN OF 7 BEAT RUN OF V TACH PER MONITORS. UPON ASSESSMENT OF PATIENT, PATIENT APPEARS TO BE RESTING IN BED. PATIENT DENIES CP/PRESSURE/PALPATIONS. PATIENT DENIES ALL SYMPTOMS. THIS RN NOTIFIED DR PISANO VIA TELEPHONE. NO NEW ORDERS.
--- NOTE | 2022-07-17 18:59 | NUR ---
SHIFT SUMMARY POD 1 L HIP PINNING. DRESSINGS CHANGED TODAY TO AQUACELS, X2, C/D/I. PATIENT CONFUSED T/O DAY, PULLING AT LINES AND ATTEMPTING TO GET OUT OF BED & CHAIR MULTIPLE TIMES. CHAIR ALARM & BED ALARM IN PLACE T/O SHIFT. HOWELL REMOVED TODAY, VOIDING WELL. EATING & DRINKING WELL. PAIN MANAGED PER EMAR. DOES NOT CALL APRROPRIATELY, REINFORCED USE OF CALL LIGHT T/O SHIFT ALTHOUGH PATIENT NEEDS CONTINUED REINFORCEMENT. WILL REPORT TO ONCOMING RN.
--- NOTE | 2022-07-18 04:15 | NUR ---
SHIFT SUMMARY A/O X3- FORGETFUL AT TIMES. POD2 L HIP PINNING- AQUACEL DRESSINGS C/D/I. NO PAIN REPORTED THROUGHOUT THE NIGHT. VITAL SIGNS STABLE. INCONTINENT VOIDS, ATTENDS CHANGES PRN. TELE IN PLACE. CALL LIGHT IN REACH. WILL CONTINUE TO MONITOR AND REPORT TO ONCOMING RN.
[2022-07-18 08:30] LABS: Hematocrit 36.8 % (33.0-51.0); Hemoglobin 12.4 g/dL (11.5-16.0)
[2022-07-18 08:49] LABS: Bun/Creatinine Ratio 24.9 (12.0-20.0); Calcium, Blood 8.6 mg/dL (8.5-10.1); Creatinine, Blood 0.68 mg/dL (0.40-1.00); Potassium, Blood 4.8 mmol/L (3.5-5.5)
--- NOTE | 2022-07-18 10:46 | NUR ---
NO ACUTE CHANGES SINCE ASSUMPTION OF CARE @ 0700. REPORT GIVEN TO MARCELINO ALBARADO.
--- NOTE | 2022-07-18 17:24 | NUR ---
SHIFT SUMMARY PT POD #2 FOR L HIP PINNING. 2 AQUACELS TO LEFT HIP CDI. PT ALERT TO SELF ONLY. CONT/INCONT, ATTENDS IN PLACE. VSS. POSSIBLE DC TO SNF TOMORROW.
[2022-07-19 05:17] LABS: Bun/Creatinine Ratio 29.8 (12.0-20.0); Calcium, Blood 8.2 mg/dL (8.5-10.1); Creatinine, Blood 0.71 mg/dL (0.40-1.00); Potassium, Blood 3.8 mmol/L (3.5-5.5)
--- NOTE | 2022-07-19 05:34 | NUR ---
SHIFT SUMMARY: PODx3 L HIP PINNING. PT A&0X3 AT THIS TIME. ANSWERS APPROPRIATELY AND USES CALL LIGHT. INCONTINENT AND ATTENDS REMAIN IN PLACE. PAIN WELL MANAGED T/O THE SHIFT. REMAINS ON 1 L 02 VIA NC. X2 AQUACEL IN PLACE ON L HIP. CALL LIGHT WITHIN REACH.
--- NOTE | 2022-07-19 17:46 | NUR ---
SHIFT SUMMARY WORKED w/ THERAPY. SAT UP IN CHAIR FOR FEW HOURS. PAIN WELL MANAGED, BUT LIMITING NARCOTICS THEY MAKE HER CONFUSED. PLEASANT & COOPERATIVE. HENRI QIUL.
--- NOTE | 2022-07-20 05:46 | NUR ---
SHIFT SUMMARY PT A&OX2-3 AND COOPERATIVE WITH CARE. NO ACUTE CHANGES. PT DID NOT NEED PAIN COVERAGE THIS SHIFT. SYSTOLIC BLOOD PRESSURE HAS REMAIN IN THE HIGH 80'S LOW 90'S. AQUACEL DRESSINGS HAD SOME LIGHT SHADOWING, DID NOT REACH EDGES. USING BSC/BEDPAN TO VOID. 1L NC, BIOX AT BEDSIDE. CAN BE CONFUSED AT TIMES, BUT LUIS TO REORIENT; BED ALARM ON. CALL LIGHT WITHIN REACH.
[2022-07-20 06:11] LABS: BASOPHILS ABSOLUTE AUTO 0.08 K/mm3 (0.00-0.23); BASOPHILS PERCENT AUTO 1 % (0-2); EOSINOPHILS ABSOLUTE AUTO 0.21 K/mm3 (0.00-0.68); EOSINOPHILS PERCENT AUTO 2 % (0-6); Hematocrit 34.3 % (33.0-51.0); Hemoglobin 11.3 g/dL (11.5-16.0); IMMATURE GRAN ABSOLUTE AUTO 0.03 K/mm3 (0.00-0.10); IMMATURE GRAN PERCENT AUTO 0 % (0-1); LYMPHOCYTES ABSOLUTE AUTO 1.37 K/mm3 (0.84-5.20); LYMPHOCYTES PERCENT AUTO 16 % (21-46); MONOCYTES ABSOLUTE AUTO 0.77 K/mm3 (0.16-1.47); MONOCYTES PERCENT AUTO 9 % (4-13); Mean Corpuscular HGB 31.7 pg (26.0-34.0); Mean Corpuscular HGB Conc 32.9 g/dL (31.5-36.5); Mean Corpuscular Volume 96 fL (80-100); Mean Platelet Volume 10.8 fL (9.1-12.4); NEUTROPHILS ABSOLUTE AUTO 6.14 K/mm3 (1.96-9.15); NEUTROPHILS PERCENT AUTO 72 % (41-73); Platelet Count 173 K/mm3 (150-400); RDW Coefficient Variation 13.5 % (11.7-14.2); RDW Standard Deviation 48.2 fL (35.1-46.3); Red Blood Cell Count 3.56 M/mm3 (3.80-5.20)
[2022-07-20 06:24] LABS: Calcium, Blood 8.2 mg/dL (8.5-10.1); Creatinine, Blood 0.76 mg/dL (0.40-1.00); Magnesium, Blood 1.8 mg/dL (1.6-2.4); Phosphorus, Blood 3.3 mg/dL (2.5-4.9); Potassium, Blood 3.9 mmol/L (3.5-5.5)
--- NOTE | 2022-07-20 10:45 | NUR ---
Pt. is sitting up in chair and welcomes my visit. We re-restblished rapport. Pt. verbalizes that she is experiencing less pain. Listen empathetically with a caring presence. Pt. verbalizes that she is lonely. Inquired if the Pts. restorationist knew that she was in the hospital and then asked if it would be her desire to have this soaking pit operator contact them? Pt. affirmed that she would very much like this soaking pit operator to let her restorationist know she was a Pt. Prayed with Pt. Pt. verbalized gratitude for the spiritual caqre visit. Contacted the Pts. restorationist on the Pts. behalf.
[2022-07-20 13:26] LABS: SARS-Cov-2 (COVID-19) PCR, MMC NEGATIVE (NEGATIVE)
[2022-07-20] MEDS ORDERED: ACET325 PO (15:38)
[2022-07-20] MEDS ORDERED: TRAM50 PO (15:39)
--- NOTE | 2022-07-20 16:00 | NUR ---
DISCHARGE VIA TO . REPORT CALLED. PLEASANT & COOPERATIVE. SCRIPT SENT w/ PT.
== END 2022-07-20 16:05 | DRG 481 ==
LOC: ER 07:11 → SURS 10:22
PROVIDERS: Emergency Medicine; Family Medicine; Internal Medicine; Orthopaedic Surgery; Student in an Organized Health Care Education/Training Program; ADMIT Internal Medicine
PROC: 3E023BZ Introduction of Anesthetic Agent into Muscle, Percutaneous Approach (ICD-10-PCS; principal; 2022-07-14)
PROC: 0QS706Z Reposition Left Upper Femur with Intramedullary Internal Fixation Device, Open Approach (ICD-10-PCS; 2022-07-16)
DX: S72.142A Displaced intertrochanteric fracture of left femur, initial encounter for closed fracture (principal); I48.20 Chronic atrial fibrillation, unspecified; I50.22 Chronic systolic (congestive) heart failure; I48.92 Unspecified atrial flutter; I44.0 Atrioventricular block, first degree; W06.XXXA Fall from bed, initial encounter; I11.0 Hypertensive heart disease with heart failure; F41.8 Other specified anxiety disorders; Z90.49 Acquired absence of other specified parts of digestive tract; Z90.89 Acquired absence of other organs; Z90.710 Acquired absence of both cervix and uterus; Z86.73 Personal history of transient ischemic attack (TIA), and cerebral infarction without residual deficits; Z88.0 Allergy status to penicillin; Z88.2 Allergy status to sulfonamides; Z88.8 Allergy status to other drugs, medicaments and biological substances; Z79.01 Long term (current) use of anticoagulants; Z79.899 Other long term (current) drug therapy; Z98.890 Other specified postprocedural states; Z95.2 Presence of prosthetic heart valve
CPT/HCPCS: 0241U; 36415; 51702; 71045; 73502; 80048; 80053; 83735; 83880; 84100; 84484; 85014; 85018; 85025; 93005; 93010; 93306; 94762; 96374; 96375; 96376; 97110; 97161; 97166; 97530; 97535; 99285-25; A9270; C1713; J0690; J1100; J1170; J1885; J2370; J2405; J2704; J2795; J3010; J3475; J7030; J7120; U0004

== ENCOUNTER 2022-08-07 02:40 | Emergency (ER) | payer OTHER ==
[~2022-08-07] VITALS: Ht 165.1 cm; Wt 56.7 kg
[~2022-08-07 02:40] MED LIST changes: +TRAM50 PO
== END 2022-08-07 04:01 | disposition home or self-care (01) ==
LOC: ER 02:40
DX: Z45.2 Encounter for adjustment and management of vascular access device (principal); E86.0 Dehydration; I48.91 Unspecified atrial fibrillation; I11.0 Hypertensive heart disease with heart failure; I50.20 Unspecified systolic (congestive) heart failure; Z88.8 Allergy status to other drugs, medicaments and biological substances; Z88.0 Allergy status to penicillin; Z88.2 Allergy status to sulfonamides; Z88.1 Allergy status to other antibiotic agents; Z79.899 Other long term (current) drug therapy
CPT/HCPCS: 99284

== ENCOUNTER 2022-09-13 18:06 | Emergency (ER) | payer OTHER ==
[~2022-09-13] VITALS: Ht 165.1 cm; Wt 55.8 kg
[2022-09-13 19:01] LABS: BASOPHILS ABSOLUTE AUTO 0.05 K/mm3 (0.00-0.23); BASOPHILS PERCENT AUTO 1 % (0-2); EOSINOPHILS ABSOLUTE AUTO 0.11 K/mm3 (0.00-0.68); EOSINOPHILS PERCENT AUTO 2 % (0-6); Hematocrit 44.1 % (33.0-51.0); Hemoglobin 14.4 g/dL (11.5-16.0); IMMATURE GRAN ABSOLUTE AUTO 0.01 K/mm3 (0.00-0.10); IMMATURE GRAN PERCENT AUTO 0 % (0-1); LYMPHOCYTES ABSOLUTE AUTO 1.38 K/mm3 (0.84-5.20); LYMPHOCYTES PERCENT AUTO 22 % (21-46); MONOCYTES ABSOLUTE AUTO 0.58 K/mm3 (0.16-1.47); MONOCYTES PERCENT AUTO 9 % (4-13); Mean Corpuscular HGB Conc 32.7 g/dL (31.5-36.5); Mean Corpuscular Volume 95 fL (80-100); Mean Platelet Volume 10.5 fL (9.1-12.4); NEUTROPHILS ABSOLUTE AUTO 4.15 K/mm3 (1.96-9.15); NEUTROPHILS PERCENT AUTO 66 % (41-73); Platelet Count 189 K/mm3 (150-400); RDW Standard Deviation 49.1 fL (35.1-46.3); Red Blood Cell Count 4.64 M/mm3 (3.80-5.20); White Blood Cell Count 6.28 K/mm3 (4.00-11.30)
[2022-09-13 19:21] LABS: Albumin, Blood 3.4 g/dL (3.4-5.0); Albumin/Globulin Ratio 1.1 (0.8-1.8); Bilirubin, Total 1.3 mg/dL (0.1-1.0); Bun/Creatinine Ratio 23.8 (12.0-20.0); Calcium, Blood 9.4 mg/dL (8.5-10.1); Creatinine, Blood 0.59 mg/dL (0.40-1.00); Globulin, Blood 3.2 g/dL (2.2-4.0); Potassium, Blood 4.4 mmol/L (3.5-5.5); Total Protein, Blood 6.6 g/dL (6.4-8.2)
== END 2022-09-13 22:15 | disposition left against medical advice (07) ==
LOC: ER 18:06
PROVIDERS: Student in an Organized Health Care Education/Training Program
DX: R22.42 Localized swelling, mass and lump, left lower limb (principal); Z79.899 Other long term (current) drug therapy; Z53.21 Procedure and treatment not carried out due to patient leaving prior to being seen by health care provider
CPT/HCPCS: 36415; 80053; 85025; 93971

== ENCOUNTER 2022-09-29 14:33 | Inpatient (IN) | payer OTHER ==
[~2022-09-29] VITALS: Ht 167.6 cm; Wt 12.5 kg
[~2022-09-29 14:33] MED LIST changes: -METO25ER PO; +METO50ER PO; +XARELTO15 MG PO
[2022-09-29 15:19] LABS: BASOPHILS ABSOLUTE AUTO 0.04 K/mm3 (0.00-0.23); BASOPHILS PERCENT AUTO 1 % (0-2); EOSINOPHILS ABSOLUTE AUTO 0.04 K/mm3 (0.00-0.68); EOSINOPHILS PERCENT AUTO 1 % (0-6); Hematocrit 44.9 % (33.0-51.0); Hemoglobin 14.4 g/dL (11.5-16.0); IMMATURE GRAN ABSOLUTE AUTO 0.01 K/mm3 (0.00-0.10); IMMATURE GRAN PERCENT AUTO 0 % (0-1); LYMPHOCYTES ABSOLUTE AUTO 1.01 K/mm3 (0.84-5.20); LYMPHOCYTES PERCENT AUTO 18 % (21-46); MONOCYTES ABSOLUTE AUTO 0.43 K/mm3 (0.16-1.47); MONOCYTES PERCENT AUTO 8 % (4-13); Mean Corpuscular HGB 30.4 pg (26.0-34.0); Mean Corpuscular HGB Conc 32.1 g/dL (31.5-36.5); Mean Corpuscular Volume 95 fL (80-100); Mean Platelet Volume 10.7 fL (9.1-12.4); NEUTROPHILS ABSOLUTE AUTO 4.05 K/mm3 (1.96-9.15); NEUTROPHILS PERCENT AUTO 73 % (41-73); Platelet Count 184 K/mm3 (150-400); RDW Coefficient Variation 14.2 % (11.7-14.2); RDW Standard Deviation 49.8 fL (35.1-46.3); Red Blood Cell Count 4.73 M/mm3 (3.80-5.20); White Blood Cell Count 5.58 K/mm3 (4.00-11.30)
[2022-09-29 15:43] LABS: Source, Urine Straight Cath
[2022-09-29 15:46] LABS: Magnesium, Blood 2.1 mg/dL (1.6-2.4)
[2022-09-29 15:49] LABS: Albumin, Blood 3.3 g/dL (3.4-5.0); Albumin/Globulin Ratio 1.3 (0.8-1.8); Bun/Creatinine Ratio 24.5 (12.0-20.0); Calcium, Blood 9.2 mg/dL (8.5-10.1); Creatinine, Blood 0.69 mg/dL (0.40-1.00); Globulin, Blood 2.5 g/dL (2.2-4.0); Potassium, Blood 4.6 mmol/L (3.5-5.5); Total Protein, Blood 5.8 g/dL (6.4-8.2)
[2022-09-29 16:05] LABS: Appearance, Urine Hazy (Clear); Blood, Urine 1+ (Neg); Color, Urine Amber (P-Yellow); Glucose Qualitative, Urine Neg (Neg); Ketones, Urine 2+ (Neg); Leukocyte Esterase, Urine 1+ (Neg); Nitrite, Urine Pos (Neg); Protein, Urine 2+ (Neg); Urobilinogen, Urine 3+ (Normal)
[2022-09-29 16:31] LABS: Bilirubin, Urine 2+ (Neg)
[2022-09-29 16:47] LABS: Bacteria Many /hpf; Squamous Epithelial Cells Few /hpf (Few)
[2022-09-29 17:09] LABS: Influenza A, PCR NEGATIVE (NEGATIVE); Influenza B, PCR NEGATIVE (NEGATIVE); Resp Syncytial Virus, PCR NEGATIVE (NEGATIVE); SARS-Cov-2 (COVID-19) PCR, MMC NEGATIVE (NEGATIVE)
[2022-09-30] MEDS ORDERED: CODACE30 PO (00:21)
[2022-09-30 05:32] LABS: Hematocrit 40.4 % (33.0-51.0); Mean Corpuscular HGB 30.7 pg (26.0-34.0); Mean Corpuscular HGB Conc 32.2 g/dL (31.5-36.5); Mean Corpuscular Volume 95 fL (80-100); Mean Platelet Volume 10.8 fL (9.1-12.4); Platelet Count 169 K/mm3 (150-400); RDW Coefficient Variation 14.2 % (11.7-14.2); Red Blood Cell Count 4.24 M/mm3 (3.80-5.20); White Blood Cell Count 6.18 K/mm3 (4.00-11.30)
[2022-09-30 05:59] LABS: Bun/Creatinine Ratio 19.9 (12.0-20.0); Calcium, Blood 8.5 mg/dL (8.5-10.1); Creatinine, Blood 0.7 mg/dL (0.40-1.00); Potassium, Blood 4.3 mmol/L (3.5-5.5)
--- NOTE | 2022-09-30 06:23 | NUR ---
SHIFT SUMMARY NOC PT A/OX3-4. PT ADMIT FROM ED WITH AMS. PT HAS UTI AND ON ROCEPHIN. PT HAD ELEVATED BNP OF 835. PT IS DEHYDRATED AND HOSPITALIST DID NOT WANT TO RUN EXTRA FLUIDS DUE TO ELEVATED BNP. PT HAS PALLIATIVE CARE CONSULT ORDERED. PT HAD C/O OF BACK PN, L HIP/KNEE PN. ONE TIME ORDER FOR TORDAL 15MG WAS GIVEN AND RELIEVED PT PN. PT IS ON 2LN/NC AND ON TELE RUNNING AFIB. PT IS CURRENTLY RESTING WITH BED ALARM ON , BED RAILS UP, BED IN LOWEST POSITION, AND CALL LIGHT WITHIN REACH.
--- NOTE | 2022-09-30 19:25 | NUR ---
SHIFT SUMMARY NO ACUTE EVENTS THIS SHIFT, AND PTN A&O X3. END SHIFT PTN SEEMED A BIT MORE CONFUSED AND WAS READY TO GO HOME. PLAN WILL LIKELY TO BE D/C TOMORROW. CONTINUE TO MONITOR.
--- NOTE | 2022-09-30 19:52 | NUR ---
NOTE APPARENT ANXIETY AT SHIFT REPORT. VOICED WAS READY TO "GO HOME". UNSTEADY ON FEET. REDIRECTED SEVERAL TIMES, BUT CONTINUED TO TRY TO GET OUT OF BED. BED ALARM ON, CONTINUED TO TRY TO GET UP. NURSE DISCUSSED DC POSSIBLE TOMORROW, BUT STILL SEEMED AGITATED. CALL PLACED TO MD SCHOOL LIBRARIAN, ORDERS FOR SEROQUEL PO OBTAINED. CALL LIGHT IN REACH. BED ALARM ON. WILL CONTINUE TO MONITOR FOR SAFETY
--- NOTE | 2022-09-30 22:11 | NUR ---
WET PRESS TENDER CALLED, VOICED PT HR IN THE 170'S, UPON ARRIVAL AT BEDSIDE, NOTED PT UP AND ABOUT PLAYING WITH BEDSIDE COMMODE. ANXIOUS. REDIRECTED. ASSISTED BACK TO BED. 3 RAILS UP. PT REFUSED PO SEROQUEL, BUT REDIRECTED TO WATCH TV. A FEW MINUTES LATER, HR DROPPED TO 120. ASYMPTOMATIC. BED ALARM PLACED BACK ON AND ENCOURAGED TO TRY TO GET SOME SLEEP. CALL LIGHT IN REACH. WILL CONTINUE TO MONITOR
--- NOTE | 2022-10-01 03:33 | NUR ---
COOKER SULFATE SUMMARY AGITATED AT SHIFT COMMENCE, VOICED SHE WANTED TO GO HOME. AM RN REPORTED THAT DC WAS CHANGED TO SOMETIME TODAY RATHER THAN YESTERDAY. PT VOICED FRUSTRATION AND STARTED PULLING OFF TELE AND NAME BAND, ETC. MULTIPLE ATTEMPTS TO REDIRECT JUST SEEMED TO INCREASE PT ANGER AND AGITATION. VERY HIGH FALL RISK, MULTIPLE ATTEMPTS TO GET OUT OF BED AND TELE MONITOR CALLED WITH HIGH TELE RATES UP TO THE 170'S AND SUCH, (OTHERWISE VSS). MD WAS NOTIFIED AND PRN OF PO SEROQUEL ORDERED, PT REFUSED IT AND AGITATION CONTINUED. MYRANDA VEST AND RAILS UP X 4 ORDERED FOR SAFETY AND ONE TIME OF IV ATIVAN. SEEMED TO CALM BUT THEN DISPLAYED INTERMITTENT EPISODES OF AGITATION THROUGH SHIFT. MD NOTIFIED AND ORDERS FOR IM ZYPREXA OBTAINED, GIVEN ONCE AND ENCOURAGED TO CALM AND MULTIPLE ATTEMPTS TO REDIRECT BEHAVIOR FOR HER SAFETY INITIATED. CALL LIGHT IN REACH. AWAKE AT INTERVALS.
[2022-10-01] MEDS ORDERED: CEFD300 PO (14:04)
--- NOTE | 2022-10-01 19:23 | NUR ---
SHIFT SUMMARY PTN MUCH MORE CONFUSED TODAY, HALLUCINATING, TALKING TO OTHERS WHO ARE NOT IN THE ROOM. BUSY THE WHOLE DAY FIGITING WITH CLOTHES AND BLANKETS, TAKING OFF CLOTHING. DIFFICULT TO RE-DIRECT. MYRANDA AND SIDE RAILS REMAINED UP DURING THE SHIFT. TELEMETRY WAS DISCONTINUED AFTER PTN REMOVED IT AND REFUSED TO WEAR IT. PTN WENT FROM GIGGLING AND LAUGHING AT THINGS TO BEING DEFIANT AND UNCOOPERATIVE. AND DAUGHTER CAME AND TALKED WITH THE DOCTORS. IT WAS THEIR WISH TO TAKE HER HOME, REPORTING THAT SHE HAS GOOD DAYS AND BAD DAYS, AND THIS BEING SARAH, THEY WANTED HER HOME. FUTURE FURTHER PLANS FOR CARE. PTN WAS DRESSED WITH SOME DIFFICULTY AND TAKEN BY WC BY MARIA GUADALUPE SAN TO EXIT. PAPERWORK WAS REVIEWED AND SIGNED BY MIKALA.
== END 2022-10-01 16:37 | disposition home or self-care (01) | DRG 871 ==
LOC: ER 14:33 → MEDS 20:17
PROVIDERS: Emergency Medicine; ADMIT Internal Medicine
DX: A41.51 Sepsis due to Escherichia coli [E. coli] (principal); G92.8 Other toxic encephalopathy; I50.42 Chronic combined systolic (congestive) and diastolic (congestive) heart failure; N39.0 Urinary tract infection, site not specified; E87.20 Acidosis, unspecified; F05 Delirium due to known physiological condition; R65.20 Severe sepsis without septic shock; I48.91 Unspecified atrial fibrillation; L89.521 Pressure ulcer of left ankle, stage 1; L89.151 Pressure ulcer of sacral region, stage 1; I11.0 Hypertensive heart disease with heart failure; F32.A Depression, unspecified; F41.9 Anxiety disorder, unspecified; F03.90 Unspecified dementia, unspecified severity, without behavioral disturbance, psychotic disturbance, mood disturbance, and anxiety; Z20.822 Contact with and (suspected) exposure to COVID-19; Z90.49 Acquired absence of other specified parts of digestive tract; Z98.890 Other specified postprocedural states; Z79.01 Long term (current) use of anticoagulants; Z86.73 Personal history of transient ischemic attack (TIA), and cerebral infarction without residual deficits; Z95.5 Presence of coronary angioplasty implant and graft; S72.142D Displaced intertrochanteric fracture of left femur, subsequent encounter for closed fracture with routine healing; Z88.0 Allergy status to penicillin; Z88.2 Allergy status to sulfonamides; Z88.8 Allergy status to other drugs, medicaments and biological substances; Z79.899 Other long term (current) drug therapy; Z79.891 Long term (current) use of opiate analgesic; Z78.1 Physical restraint status
CPT/HCPCS: 0241U; 36415; 51701; 70450; 71045; 72125; 72170; 80048; 80053; 81001; 83605; 83690; 83735; 83880; 84484; 85025; 85027; 87077; 87086; 87186; 93005; 93010; 96374-59; 96376-59; 99285-25; A9270; J0696; J1885; J2060; J7030

== ENCOUNTER 2022-12-25 09:03 | Inpatient (IN) | payer OTHER ==
[~2022-12-25] VITALS: Ht 162.6 cm; Wt 52.7 kg
[~2022-12-25 09:03] MED LIST changes: +Atarax10 MG PO; +CEFD300 PO; +CODACE30 PO; +FAMO20 PO; +TORS10 PO
[2022-12-25 09:37] LABS: BASOPHILS ABSOLUTE AUTO 0.05 K/mm3 (0.00-0.23); BASOPHILS PERCENT AUTO 1 % (0-2); EOSINOPHILS ABSOLUTE AUTO 0.02 K/mm3 (0.00-0.68); EOSINOPHILS PERCENT AUTO 0 % (0-6); Hematocrit 41.4 % (33.0-51.0); Hemoglobin 13.7 g/dL (11.5-16.0); IMMATURE GRAN ABSOLUTE AUTO 0.01 K/mm3 (0.00-0.10); IMMATURE GRAN PERCENT AUTO 0 % (0-1); LYMPHOCYTES ABSOLUTE AUTO 0.91 K/mm3 (0.84-5.20); LYMPHOCYTES PERCENT AUTO 14 % (21-46); MONOCYTES ABSOLUTE AUTO 0.53 K/mm3 (0.16-1.47); MONOCYTES PERCENT AUTO 8 % (4-13); Mean Corpuscular HGB 31.1 pg (26.0-34.0); Mean Corpuscular HGB Conc 33.1 g/dL (31.5-36.5); Mean Corpuscular Volume 94 fL (80-100); Mean Platelet Volume 10.3 fL (9.1-12.4); NEUTROPHILS ABSOLUTE AUTO 4.99 K/mm3 (1.96-9.15); NEUTROPHILS PERCENT AUTO 77 % (41-73); Platelet Count 161 K/mm3 (150-400); RDW Coefficient Variation 14.8 % (11.7-14.2); RDW Standard Deviation 51.8 fL (35.1-46.3); Red Blood Cell Count 4.41 M/mm3 (3.80-5.20); White Blood Cell Count 6.51 K/mm3 (4.00-11.30)
[2022-12-25 09:49] LABS: Source, Urine Straight Cath
[2022-12-25 09:56] LABS: Appearance, Urine Clear (Clear); Bilirubin, Urine Neg (Neg); Blood, Urine Neg (Neg); Color, Urine Yellow (P-Yellow); Glucose Qualitative, Urine Neg (Neg); Ketones, Urine Neg (Neg); Leukocyte Esterase, Urine Neg (Neg); Nitrite, Urine Neg (Neg); Protein, Urine 2+ (Neg); Urobilinogen, Urine 2+ (Normal)
[2022-12-25 09:56] LABS: Albumin, Blood 3.4 g/dL (3.4-5.0); Albumin/Globulin Ratio 1.3 (0.8-1.8); Bilirubin, Total 1.5 mg/dL (0.1-1.0); Bun/Creatinine Ratio 21.6 (12.0-20.0); Calcium, Blood 9.2 mg/dL (8.5-10.1); Creatinine, Blood 0.65 mg/dL (0.40-1.00); Globulin, Blood 2.7 g/dL (2.2-4.0); Potassium, Blood 4.6 mmol/L (3.5-5.5); Total Protein, Blood 6.1 g/dL (6.4-8.2)
[2022-12-25 10:07] LABS: Amorphous Heavy (0-Heavy)
[2022-12-25 10:08] LABS: Calcium Oxalate Crystals Rare /hpf; Red Blood Cells, Urine 0-2 /hpf (0-2); White Blood Cells, Urine 0-2 /hpf (0-5)
[2022-12-25 10:09] LABS: Renal Epithelial Rare /hpf (0-Rare)
[2022-12-25 10:11] LABS: Bacteria Few /hpf; Squamous Epithelial Cells Rare /hpf (Few)
[2022-12-25 14:06] LABS: Base Excess Venous -1.1 mmol/L; Bicarbonate Venous 23.5 mmol/L (24.0-30.0); PCO2 Venous 40.7 mmHg (38-42); pH Blood Venous 7.38 (7.34-7.37)
--- NOTE | 2022-12-25 14:59 | NUR ---
PT ARRIVED TO UNIT AT THIS TIME FROM ER SLIDE TRANSFER OVER, CHANGED INTO HOSPITAL GOWN/CLEAN BREIF-PT SCREAMING OUT WHEN GETTING CHANGED. 3LNC AT ARRIVAL, RA @ BASE. PLAN TO CONTACT FAMILY TO COMPLETE ADDMISSION
[2022-12-26 06:28] LABS: Bun/Creatinine Ratio 14.4 (12.0-20.0); Calcium, Blood 8.7 mg/dL (8.5-10.1); Creatinine, Blood 0.62 mg/dL (0.40-1.00); Potassium, Blood 4.4 mmol/L (3.5-5.5)
--- NOTE | 2022-12-26 17:51 | NUR ---
SHIFT SUMMARY PT A&OX3-4 AND IN PLEASENT MOOD T/O SHIFT. PT CONT. 1X SBA TO BSC. TELE IN PLACE FOR 140 PULSE RATE-[id number] MEDICATED PER EMAR IV LOPRESSOR ADMINISTERED CURRENT AFIB 120, PLAN TO NOTIFY CALL LIGHT IN REACH, BED IN LOW POSITION, BED ALARM ON. FAMILY IN TO SEE PT BRIEFLY. URINE APPEARS CONCENTRATED. MENTATION IMPROVED FROM YESTERDAY, REMAINS PLEASENTLY CONFUSED
--- NOTE | 2022-12-26 22:28 | NUR ---
DR SULLIVAN AT BEDSIDE TO SEE PATIENT AND SAW THAT THE PATIENT HAD PULLED HER IV OUT. PATIENT'S HEART RATE IS CURRENTLY SUSTAINING IN THE 90'S SO DR SULLIVAN SAID NOT TO START A NEW IV SINCE THE PATIENT IS EXPECTED TO DISCHARGE TOMORROW AND START PATIENT'S PO METOPROLOL NOW. WILL CONTINUE TO MONITOR.
--- NOTE | 2022-12-27 06:09 | NUR ---
SHIFT SUMMARY PATIENT ARRIVED TO PCU 08 AT 2002. SHE IS ALERT AND ORIENTED X2-3, CONFUSED AND FORGETFUL, OCCASIONALLY HAVING HALLUCINATIONS. NEW IV INSERTED AND PATIENT HAD TO BE STARTED BACK ON CARDIZEM DRIP AT 0104 PATIENT'S HEART RATE WAS BACK IN THE 130'S. CARDIZEM DRIP TURNED OFF AT 0347 PATIENT HAD CONVERTED TO SINUS RHYTHM WITH HEART RATE IN THE 90'S. PATIENT'S HEART RATE IS CURRENTLY IN THE LOW 100'S. BLOOD PRESSURE STABLE. PATIENT ON 2 LITERS O2 VIA NASAL CANULA. ATTEMPTED TO TITRATE TO ROOM AIR BUT PATIENT WOULD DESAT INTO THE 80'S WHEN OFF OXYGEN. PATIENT MEDICATED PER EMAR WITH IV ATIVAN PATIENT WAS MORE CONFUSED AND AGITATED, THIS HELPED THE PATIENT TO REST COMFORTABLY, HOWVER, SHE DID NOT SLEEP AT ALL OVERNIGHT. CALL LIGHT WITHIN REACH. WILL CONTINUE TO MONITOR.
--- NOTE | 2022-12-27 15:01 | NUR ---
Spiritual care visit conducted. Patient is lying in bed and alert. Pt is confused. She says actual words mixed in with some alphabet soup. She says something about her family but can't tell me any names until I say their names and her face lights up. She also tells me that she prays but can't tell me what she believes. At one point, she began smiling and laughing for several minutes. She indicated that she was traveling and could not remember where she was going. I normalized what I could understand of her experience, and I provided theraeputic listening and prayer. Patient responded well and showed signs of an elevated mood.
--- NOTE | 2022-12-27 18:09 | NUR ---
SHIFT AND TRANSFER SUMMARY PATIENT CONFUSED AND VISUALLY HALLUCINATING THROUGHOUT SHIFT. OCCASIONALLY TAKES SHORT NAPS. TACHY 110-120 IN AM, WITH INCREASE TO 140S WITH EXERTION. RATE IMPROVED THROUGH DAY TO 90S IN AFTERNOON. UNABLE TO WEAN FROM 2L O2 VIA NC. DESATS TO MID 80S SPO2 ON RA. LOW PO INTAKE. INC-CONT OF URINE. SOMETIMES CALLS FOR HELP TO BSC. TRANSFERRED TO MED WITH TELE. REPORT CALLED TO EAMON ORTIZ RN. PATIENT LEFT UNIT IN BED AT 1715 FOR ROOM 353.
--- NOTE | 2022-12-27 22:23 | NUR ---
TELEMETRY EVENT OMAR HERNANDEZ NOTIFIED THIS RN THAT PATIENT'S HR WAS SUSTAINING IN THE 150'S. DR. HANSEN INFORMED OF THIS AND A ONE-TIME ORDER FOR METOPROLOL 25 MG WAS OBTAINED. PATIENT IS ASYMPTOMATIC AND DENIES CHEST PAIN. THIS RN WILL CONTINUE TO CLOSELY MONITOR.
--- NOTE | 2022-12-28 04:59 | NUR ---
FIRE LIEUTENANT MARINE SUMMARY TELEMETRY EVENT, OTHERWISE NO ACUTE EVENTS THROUGHOUT THE NIGHT. A&O TO SELF ONLY. PATIENT EFFECTIVELY COMMUNICATES NEEDS WITH PROMPTING. RR EVEN AND UNLABORED ON 3L O2. PER RECORDS, TITRATION ATTEMPTED BUT UNSUCCESSFUL. TITRATION NOT ATTEMPTED THIS SHIFT. EARLIER IN THE SHIFT, DISTRICT AGENT NOTIFIED THIS RN THAT PATIENT'S HR WAS SUSTAINING IN THE 150'S. DR. HANSEN WAS NOTIFED OF THIS AND AN ORDER FOR METOPROLOL WAS OBTAINED. THIS INTERVENTION WAS EFFECTIVE. VSS OTHERWISE. BED LOW AND LOCKED. BED ALARM ON. CALL LIGHT WITHIN REACH. THIS RN WILL CONTINUE TO MONITOR.
[2022-12-28 05:31] LABS: Hematocrit 42.7 % (33.0-51.0); Mean Corpuscular HGB 30.6 pg (26.0-34.0); Mean Corpuscular HGB Conc 32.8 g/dL (31.5-36.5); Mean Corpuscular Volume 93 fL (80-100); Mean Platelet Volume 10.4 fL (9.1-12.4); Platelet Count 127 K/mm3 (150-400); RDW Coefficient Variation 14.6 % (11.7-14.2); RDW Standard Deviation 50.4 fL (35.1-46.3); Red Blood Cell Count 4.58 M/mm3 (3.80-5.20); White Blood Cell Count 5.16 K/mm3 (4.00-11.30)
[2022-12-28 06:33] LABS: Thyroid Stimulating Hormone 1.72 uIU/mL (0.360-4.800)
[2022-12-28 06:41] LABS: Albumin, Blood 2.9 g/dL (3.4-5.0); Albumin/Globulin Ratio 1.1 (0.8-1.8); Bun/Creatinine Ratio 19.1 (12.0-20.0); Calcium, Blood 8.6 mg/dL (8.5-10.1); Creatinine, Blood 0.63 mg/dL (0.40-1.00); Globulin, Blood 2.6 g/dL (2.2-4.0); Potassium, Blood 4.2 mmol/L (3.5-5.5); Total Protein, Blood 5.5 g/dL (6.4-8.2)
--- NOTE | 2022-12-28 12:00 | NUR ---
Briefly met with Rosalie this afternoon. She appears to be quite sleepy. She did open her eyes and say a couple words to this loan underwriter when I entered her room. She tells me she lives with her but is unable to answer any other of my questions at this time. She keeps her eyes closed for most of the time. Will allow her to rest. No family currently in her room. Chart reviewed. PC to continue to follow.
--- NOTE | 2022-12-28 16:35 | NUR ---
PT ALERT ORIENTED TO SELF. PT HAS BEEN DROWSY FOR MOST OF THE DAY. PT PULLS HER O2 OFF OCCASIONALY AND DESAT'S TO THE HIGH 80'3. PT PER TELE HAS BEEN IN SINUS RYTHM T/O THE DAY CONVERTED FROM A-FIB THIS EARLY AM. PT WAS ABLE TO FEED HERSELF FOR LUNCH AND DINNER. PT FAMILY WAS IN TO SEE HER TODAY. CALL LIGHT IN REACH. WILL CONTINUE TO MONITOR AND ASSESS FOR CHANGES
--- NOTE | 2022-12-28 21:18 | NUR ---
TRANSFER OF CARE NOTE RECEIVED REPORT FROM LEOLA GILMORE PT ARRIVED IN PCU ~2049 THIS PM FROM MEDICAL FLOOR. TRANSFER INITIATED DUE TO PT'S CONVERSION TO A.FIB W/RVR WELL DECREASING BLOOD PRESSURES. PT ARRIVED WITH 500ML BAG OF NS FOR BOLUS WITH RATE RUNNING ORDERED PER EMAR. PT HAS BEEN SOMULENT SINCE HER ARRIVAL IN PCU WITH PT ONLY BEING ALERT TO SELF. PUPILS REACTIVE TO LIGHT BILAT AND TENDS TO MAINTAIN A BLANK STARE. MAINTAINS SPO2 >90% ON 3L VIA NC WITH NO SIGNS OF SOB OR DYSPNEA AT REST. NO REPORTS OF CP OR PRESSURE. SBP RANGING IN THE LOW 100'S WITH MAP >75. HR CONTINUES TO BE IN THE 110-130'S. PT ON CARDIAC TELEMETRY. NO NEW ORDERS AT THIS TIME
[2022-12-29 03:25] LABS: Hematocrit 45.6 % (33.0-51.0); Hemoglobin 14.9 g/dL (11.5-16.0); Mean Corpuscular HGB 30.7 pg (26.0-34.0); Mean Corpuscular HGB Conc 32.7 g/dL (31.5-36.5); Mean Corpuscular Volume 94 fL (80-100); Mean Platelet Volume 10.6 fL (9.1-12.4); Platelet Count 126 K/mm3 (150-400); RDW Coefficient Variation 14.7 % (11.7-14.2); RDW Standard Deviation 51.6 fL (35.1-46.3); Red Blood Cell Count 4.85 M/mm3 (3.80-5.20); White Blood Cell Count 3.82 K/mm3 (4.00-11.30)
[2022-12-29 03:44] LABS: Bilirubin, Total 1.6 mg/dL (0.1-1.0); Bun/Creatinine Ratio 22.5 (12.0-20.0); Calcium, Blood 8.7 mg/dL (8.5-10.1); Creatinine, Blood 0.76 mg/dL (0.40-1.00); Globulin, Blood 2.9 g/dL (2.2-4.0); Potassium, Blood 4.1 mmol/L (3.5-5.5); Total Protein, Blood 5.9 g/dL (6.4-8.2)
--- NOTE | 2022-12-29 04:29 | NUR ---
SHIFT SUMMARY PT IS A/Ox1 (ONLY TO SELF), BUT IS COOPERATIVE WITH CARE PROVIDED BY MEMBERS OF STAFF. MENTATION WAXES AND WANES FOR PT IS OFTEN CONFUSED OR HAS TROUBLE WITH HER SHORT TERM MEMORY. PT WAS A TRANSFER FROM [facility] THIS SHIFT DUE TO CONVERSION FROM SR TO AFIB RVR. HR WAS IN THE 140-160'S, BUT PO DOSE OF LOPRESSOR RETURN HR TO 110-120'S. BP WAS ALSO SOFT WITH SBP RANGING FROM 90-100'S. PT RECEIVED 500ML NS BOLUS TO HELP BALANCE HER PRESSURES. PT CAN ANSWER QUESTIONS APPROPRIATELY AT TIMES AND HAS NEVER STATED SHE WAS SYMPOMATIC DURING THIS EPISODES OF INCREASED HR. RESPIRATORY MUNGUIA, MAINTAINED SPO2 >92% ON 1-3 VIA NC. ATTEMPTED TO TITRATE OFF O2 WITHOUT SUCCESS. SOB NOTED WITH EXERTION. CONTINENT/INCONTINENT T/O THE SHIFT, ATTENDS CHANGED PRN. NO NEW ORDERS AT THIS TIME AND WILL REPORT INFO TO CODI BENSON. BELEM T/O THE SHIFT
--- NOTE | 2022-12-29 17:16 | NUR ---
SHIFT SUMMARY PT IS ALERT AND ORIENTED TO SELF, PLACE AND FAMILY. SHE APPEARS CONFUSED SHE HAS DUMPED WATER ON THE FLOOR OR UNFASTENED ATTENDS AND ATTEMPTED TO TAKE THEM OFF. SHE IS PLEASANT W/ CARE BUT BED AND CHAIR ALARM HAVE BEEN IN USE T/O SHIFT. SHE IS ABLE TO MAKE HER NEEDS KNOWN TO STAFF MEMBERS. SPO2 MAINTAINED >95% VIA 2-3L NC. PT DENIES FEELING SOB. THIS AM HR REACHED 140, MADE AWARE, SEE EMAR FOR HR MANAGEMENT. HR HAS SINCE RANGED IN 70-100. SBP IN 90'S BUT MAP HAS MAINTAINED IN 70'S. SHE HAS DENIED FEELINGS OF CHEST PAIN/PRESSURE. HER AND SON WERE BOTH AT BEDSIDE TODAY. PT IS NOW UP IN CHAIR EATING DINNER. WILL CONTINUE TO MONITOR UNTIL REPORT GIVEN. CALL LIGHT IS IN REACH, CHAIR ALARM IS ON.
[2022-12-30 03:51] LABS: Hematocrit 43.1 % (33.0-51.0); Mean Corpuscular HGB 30.6 pg (26.0-34.0); Mean Corpuscular HGB Conc 32.5 g/dL (31.5-36.5); Mean Corpuscular Volume 94 fL (80-100); Platelet Count 112 K/mm3 (150-400); RDW Coefficient Variation 14.5 % (11.7-14.2); RDW Standard Deviation 50.5 fL (35.1-46.3); Red Blood Cell Count 4.58 M/mm3 (3.80-5.20); White Blood Cell Count 3.68 K/mm3 (4.00-11.30)
[2022-12-30 04:14] LABS: Albumin, Blood 2.7 g/dL (3.4-5.0); Bilirubin, Total 1.1 mg/dL (0.1-1.0); Bun/Creatinine Ratio 43.5 (12.0-20.0); Calcium, Blood 8.6 mg/dL (8.5-10.1); Creatinine, Blood 0.53 mg/dL (0.40-1.00); Globulin, Blood 2.8 g/dL (2.2-4.0); Potassium, Blood 4.1 mmol/L (3.5-5.5); Total Protein, Blood 5.5 g/dL (6.4-8.2)
--- NOTE | 2022-12-30 04:56 | NUR ---
SHIFT SUMMARY A/Ox1-2 WITH FREQUENT BOUTS OF CONFUSION WELL AUDITORY AND VISUAL HALLCINATIONS (BUGS IN ROOM, IMAGINARY PEOPLE, CONVERSATIONS WITH FAM MEMBERS WHO ARE NOT PRESENT, ETC.). PT REMAINS COOPERATIVE WITH CARE PROVIDED BY MEMBERS OF STAFF HOWEVER AND CAN OCCASIONALLY MAKE HER NEEDS KNOWN. HAS MAINTAINED SPO2 >92% ON 1-3L VIA NC WITH NO SOB NOTED AT REST. CARDOAC MUNGUIA, PRESSURES WERE SOFT AT THE BEGINING OF THE SHIFT, BUT HAVE IMPROVED TO 100'S SBP. HR REMAINS A.FIB WITH A RATE RANGING IN THE 70-90'S AFTER PM LOPRESSOR DOSE. NO CP OR PRESSURE REPORTED T/O THE NIGHT. REMAINS INCONTINET OF URINE, ATTENDS IN PLACE AND CHANGED PRN. REPOSITONED Q2HRS ORDERED. NO ACUTE EVENTS OVER NIGHT. WILL REPORT TO DAY SHIFT RN. BELEM CHUNG T/O THE SHIFT
[2022-12-30] MEDS ORDERED: METO50 PO (11:38)
[2022-12-30] MEDS ORDERED: Vitamin B Comple1 EA PO (11:39)
--- NOTE | 2022-12-30 11:43 | NUR ---
CALL PLACED TO [facility] TO INQUIRE WHY PT WAS DCD FROM HOSPICE AFTER NOVEMBER ADMISSION. PER NOLAN, PT WAS A NON-ADMIT, ADMITTING NURSE WAS UNABLE TO ASSESS [facility] ADMISISON THE FAMILY DECLINED HOSPICE SERVICES AND WANTED TO FOLLOW UP WITH PT PCP. CASE CONF WITH RN, REPORTS PT CONTINUES TO BE PLEASANTLY CONFUSED, SITTING IN A CHAIR AT THE BEDSIDE HOLDING THE CALL LIGHT TO HER EAR SHE THINKS ITS A PHONE. RN REPORT DC ORDER HAS BEEN PLACED TODAY AND THEY ARE TRYING TO GET AHOLD OF FAMILY. VM LEFT FOR SON. SPOUSE WAS CONTACTED, BUT HE IS TOO [place] AND COULDNT UNDERSTAND CONVERSATION ON PHONE. UPDATED RN AND DR CANO ON WHY PT WAS NOT ADMITTED TO HOSPICE.
--- NOTE | 2022-12-30 12:22 | NUR ---
MD NOTIFICATION MD NOTIFIED POST AM HEART MEDS, BP IN 80s, HR 130s WHILE AMBULATING. . CLARIFIED THAT DISCHARGE ORDER STILL STANDS. NURSING HAS YET TO BE ABLE TO CONTACT FAMILY. TO PLACE NEW MED ORDERS
[2022-12-30] MEDS ORDERED: DIGOX125 MC1 PO (12:30)
--- NOTE | 2022-12-30 15:52 | NUR ---
DISCHARGE NOTE. PT DISCHARGED HOME WITH AND SON. ALL EDUCATION WAS GIVEN TO FAMILY. NEW MEDIATIONS FAXED TO PHARMACY. VITALS STABLE AT DISCHARGE. HR IMPROVED WITH NEW MED. BP STABLE. ALL BELONINGS TAKEN WITH PT AT DISCHARGE.
== END 2022-12-30 15:50 | disposition home or self-care (01) | DRG 71 ==
LOC: ER 09:03 → MEDS 09:04 → ER 09:04 → MEDS 15:32 → PCU 12-26 19:55 → MEDS 12-27 17:20 → PCU 12-28 20:44
PROVIDERS: Emergency Medicine; Internal Medicine; ADMIT Family Medicine
DX: G93.41 Metabolic encephalopathy (principal); E87.1 Hypo-osmolality and hyponatremia; F02.811 Dementia in other diseases classified elsewhere, unspecified severity, with agitation; I50.42 Chronic combined systolic (congestive) and diastolic (congestive) heart failure; I48.92 Unspecified atrial flutter; G30.9 Alzheimer's disease, unspecified; I48.91 Unspecified atrial fibrillation; Z51.5 Encounter for palliative care; Z66 Do not resuscitate; E86.0 Dehydration; I11.0 Hypertensive heart disease with heart failure; R09.02 Hypoxemia; E53.8 Deficiency of other specified B group vitamins; F32.A Depression, unspecified; L89.899 Pressure ulcer of other site, unspecified stage; F41.9 Anxiety disorder, unspecified; Z87.81 Personal history of (healed) traumatic fracture; Z98.890 Other specified postprocedural states; Z86.73 Personal history of transient ischemic attack (TIA), and cerebral infarction without residual deficits; Z90.49 Acquired absence of other specified parts of digestive tract; Z88.0 Allergy status to penicillin; Z88.2 Allergy status to sulfonamides; Z88.8 Allergy status to other drugs, medicaments and biological substances
CPT/HCPCS: 36415; 51701; 70450; 71045; 80048; 80053; 81001; 82607; 82746; 82803; 84443; 84484; 85025; 85027; 93005; 93010; 94760; 94761; 96361; 96361-59; 96374-59; 96375; 96376-59; 97116; 97162; 97165; 97530; 97535; 99285-25; A9270; G0378; J2060; J3420; J7030; J7040

== ENCOUNTER 2023-02-14 10:32 | Emergency (ER) | payer OTHER ==
[~2023-02-14] VITALS: Ht 165.1 cm; Wt 52.2 kg
[~2023-02-14 10:32] MED LIST changes: +DIGOX125 MC1 PO; +ENTRESTO 24 MG1 EAC3 PO; +METO50 PO; +Vitamin B Comple1 EA PO
[2023-02-14 11:15] VITALS: BP 136/91
--- NOTE | 2023-02-14 15:09 | NUR ---
Case Conference: Pt has been seen in the ED 4 times and admitted to the hospital twice since Jul 2022. She was last d/c'd from the hospital on 12/29/22. The pt has hx of Alzheimer's dementia, A-fib, chronic combined systolic and diastolic heart failure, HTN, and hypoxia. The pt is likely end-stage dementia as she is beginning to refuse food and/or fluids and sleep has become unregulated. Her primary CG's are pt's son and . Each time pt discharges, she is also set up with a hospice admission, but then family cancels. Unsure for the reasoning for this, however pt has not slept, eaten or drank anything in the past 4 days, and daughter states they are now ready for assistance. [employer] worker checking with hospice agencies for openings, and this RN will follow up with son and when they arrive.
[2023-02-14] MEDS ORDERED: Zyprexa Zydis5 MG PO (16:05)
--- NOTE | 2023-02-14 16:41 | NUR ---
Pt is going home tonight and admitting to [facility] tomorrow. Pt had episode of incontinence, she cried out loudly with turning or moving, and appeared unable to move, roll onto or bend her L leg. Dr. Amezquita prescribed xyprexa and norco x's 1 now, pt required liquid norco in a syringe. She was able to swallow it with some coaxing. Boni, social services director is attempting to get pt home with gurney transport. Pt's son and have left to picker/puller rx for zyprexa. Daughter Merry remains at bedside.
== END 2023-02-14 17:12 | disposition home or self-care (01) ==
LOC: ER 10:32
DX: F03.90 Unspecified dementia, unspecified severity, without behavioral disturbance, psychotic disturbance, mood disturbance, and anxiety (principal); R45.1 Restlessness and agitation; Z51.5 Encounter for palliative care; I48.91 Unspecified atrial fibrillation; I11.0 Hypertensive heart disease with heart failure; I50.20 Unspecified systolic (congestive) heart failure; Z88.8 Allergy status to other drugs, medicaments and biological substances; Z88.0 Allergy status to penicillin; Z88.1 Allergy status to other antibiotic agents; Z79.899 Other long term (current) drug therapy
CPT/HCPCS: 99284; A9270